=== PATIENT | female | born 1985 | race Caucasian/White ===

== ENCOUNTER 2024-04-13 19:37 | Inpatient (IN) | payer BC ==
[2024-04-13] MEDS: SODIUM CHLORIDE 0.9% 1,000 ML IV STA (20:36)
--- NOTE | 2024-04-13 20:36 | ED ---
General Adult HPI - General Chief complaint: Nausea/Vomiting/Diarrhea Stated complaint: NVD Time Seen by Provider: 04/13/24 19:48 Source: patient, EMS Mode of arrival: EMS - History of Present Illness Initial comments: Dictation was produced using [employer] dictation software. please excuse any grammatical, word or spelling errors. Chief Complaint: 38-year-old female with multiple complaints History of Present Illness: Patient 38-year-old female states that she ran out of her medications recently. She has history of hypertension and anxiety. She ran out of her Xanax prescription states that she has also been drinking. States she has had poor appetite, nausea vomiting. Emesis nonbilious nonbloody. She states she is also anxious and has lost 20 pounds unintentionally The ROS documented in this emergency department record has been reviewed and confirmed by me. Those systems with pertinent positive or negative responses have been documented in the HPI. All other systems are other negative and/or noncontributory. - Related Data Allergies Allergy/AdvReac Type Severity Reaction Status Date / Time No Known Allergies Allergy Verified 04/13/24 19:51 Review of Systems ROS Statement: Those systems with pertinent positive or pertinent negative responses have been documented in the HPI. ROS Other: All systems not noted in ROS Statement are negative. Past Medical History Past Medical History: Cancer, Hypertension Additional Past Medical History / Comment(s): Cervical cancer 2009 Past Surgical History: Adenoidectomy, Tonsillectomy Past Psychological History: Anxiety Past Alcohol Use History: Daily Past Drug Use History: None Reported General Exam - General Exam Comments Initial Comments: PHYSICAL EXAM: General Impression: Alert and oriented x3, not in acute distress HEENT: Normocephalic atraumatic, extra-ocular movements intact, pupils equal and reactive to light bilaterally, mucous membranes moist. Cardiovascular: Heart regular rate and rhythm Chest: Able to complete full sentences, no retractions, no tachypnea Abdomen: abdomen soft, non-tender, non-distended, no organomegaly Musculoskeletal: Pulses present and equal in all extremities, no peripheral edema Motor: no focal deficits noted Neurological: CN II-XII grossly intact, no focal motor or sensory deficits noted Skin: Intact with no visualized rashes Psych: Normal affect and mood Course Vital Signs 04/13/24 04/13/24 19:40 21:13 Temperature 98.3 F 98.4 F Pulse Rate 110 H 100 Respiratory 16 18 Rate Blood Pressure 140/90 139/89 O2 Sat by Pulse 97 99 Oximetry Medical Decision Making - Medical Decision Making Was pt. sent in by a medical professional or institution (, [facility], [employer]OO[employer] PROMENADE TILE SETTER, urgent care, hospital, or [place] [facility]...) When possible be specific @ -No Did you speak to anyone other than the patient for history (EMS, parent, family, police, friend...)? What history was obtained from this source @ -No Did you review nursing and triage notes (agree or disagree)? Why? @ -I reviewed and agree with nursing and triage notes Were old charts reviewed (outside hosp., previous admission, EMS record, old EKG, old radiological studies, urgent care reports/EKG's, [place] [facility] records)? Report findings @ -No old charts were reviewed Differential Diagnosis (chest pain, altered mental status, abdominal pain women, abdominal pain men, vaginal bleeding, musculoskeletal, weakness, fever, dyspnea, syncope, headache, dizziness, GI bleed, back pain, seizure, CVA, palpatations, mental health)? @ -Differential Weakness: Hypoglycemia, shock, sepsis, hyponatremia, anemia, infection, FL, ETOH, adverse medicine reaction, overdose, stroke, this is not meant to be an all-inclusive list. EKG interpreted by me (3pts min.). @ -See above X-rays interpreted by me (1pt min.). @ -None done CT interpreted by me (1pt min.). @ -None done U/S interpreted by me (1pt. min.). @ -None done What testing was considered but not performed or refused? (CT, X-rays, U/S, labs)? Why? @ -None What meds were considered but not given or refused? Why? @ -None Was smoking cessation discussed for >3mins.? @ -No Were there social determinants of health that impacted care today? How? (Homelessness, low income, unemployed, alcoholism, drug addiction, transportation, low edu. Level, literacy, decrease access to med. care, long term, rehab)? @ -No Was there de-escalation of care discussed even if they declined (Discuss DNR or withdrawal of care, Hospice)? DNR status @ -No What co-morbidities impacted this encounter? (DM, HTN, Smoking, COPD, CAD, Cancer, CVA, ARF, Chemo, Hep., AIDS, mental health diagnosis, sleep apnea, morbid obesity)? @ -None Was patient admitted / discharged? Hospital course, mention meds given and route, prescriptions, significant lab abnormalities, going to OR and other pertinent info. @ -38-year-old female presents to the emergency department for multiple complaints. Vital signs upon arrival are within acceptable limits. Physical examination is benign. Patient well-appearing. Laboratory evaluation obtained. Showing significant electrolyte derangement with potassium 3.0 and magnesium 1.1. Patient will be admitted for electrolyte derangement Did you discuss the management of the patient with other professionals (professionals i.e. , PA, ROO[employer] PROMENADE TILE SETTER, lab, RT, psych nurse, social services specialist, bungy jump master, teacher, reserve officer, piano case and bench assembler)? Give summary @ -Case discussed with hospitalist for admission Was critical care preformed (if so, how long)? @ -No Undiagnosed new problem with uncertain prognosis? @ -No Drug Therapy requiring intensive monitoring for toxicity (Heparin, Nitro, Insulin, Cardizem)? @ -No Were any procedures done? @ -No Diagnosis/symptom? Acute, or Chronic, or Acute on Chronic? Uncomplicated (without systemic symptoms) or Complicated (systemic symptoms)? @ -Electrolyte derangement Side effects of treatment? @ -No Exacerbation, Progression, or Severe Exacerbation? @ -No Poses a threat to life or bodily function? How? (Chest pain, USA, FL, pneumonia, PE, COPD, DKA, ARF, appy, cholecystitis, CVA, Diverticulitis, Homicidal, Suicidal, threat to staff... and all critical care pts) @ -yes - Lab Data Result diagrams: 04/13/24 20:41 04/13/24 20:41 Lab Results 04/13/24 04/13/24 04/13/24 Range/Units 20:41 20:41 20:47 WBC 6.1 (3.8-10.6) k/uL RBC 3.57 L (3.80-5.40) m/uL Hgb 12.6 (11.4-16.0) gm/dL Hct 37.5 (34.0-46.0) % MCV 105.3 H (80.0-100.0) fL MCH 35.3 H (25.0-35.0) pg MCHC 33.6 (31.0-37.0) g/dL RDW 16.1 H (11.5-15.5) % Plt Count 164 (150-450) k/uL MPV 7.9 Neutrophils % 70 % Lymphocytes % 23 % Monocytes % 5 % Eosinophils % 0 % Basophils % 0 % Neutrophils # 4.3 (1.3-7.7) k/uL Lymphocytes # 1.4 (1.0-4.8) k/uL Monocytes # 0.3 (0-1.0) k/uL Eosinophils # 0.0 (0-0.7) k/uL Basophils # 0.0 (0-0.2) k/uL Anisocytosis Slight Macrocytosis Moderate Sodium 136 L (137-145) mmol/L Potassium 3.0 L (3.5-5.1) mmol/L Chloride 103 (98-107) mmol/L Carbon Dioxide 27 (22-30) mmol/L Anion Gap 6 mmol/L BUN 9 (7-17) mg/dL Creatinine 0.65 (0.52-1.04) mg/dL Est GFR (CKD-EPI)AfAm >90 (>60 ml/min/1.73 sqM) Est GFR (CKD-EPI)NonAf >90 (>60 ml/min/1.73 sqM) Glucose 119 H (74-99) mg/dL Calcium 9.3 (8.4-10.2) mg/dL Magnesium 1.1 L (1.6-2.3) mg/dL Total Bilirubin 3.1 H (0.2-1.3) mg/dL Conjugated Bilirubin 0.0 (0.0-0.3) mg/dL Unconjugated Bilirubin 2.3 H (0.0-1.1) mg/dL Delta Bilirubin 0.8 H (0.0-0.2) mg/dL TSH 3.420 (0.465-4.680) mIU/L Serum Alcohol <10 mg/dL Disposition Clinical Impression: Electrolyte abnormality Disposition: ADMITTED IP TO THIS [facility] Condition: Fair Referrals: None,Stated [REFERRING] - 1-2 days Decision Time: 21:54
[2024-04-13] MEDS: LORazepam 2 MG/ML INJ IV STA (20:37)
[2024-04-13 21:15] LABS: African American GFR (CKD) >90 (>60 ml/min/1.73 sqM); Anion Gap 6 mmol/L; Blood Urea Nitrogen 9 mg/dL (7-17); Calcium 9.3 mg/dL (8.4-10.2); Carbon Dioxide 27 mmol/L (22-30); Chloride 103 mmol/L (98-107); Glucose 119 mg/dL (74-99); Magnesium 1.1 mg/dL (1.6-2.3); Non-African American GFR(CKD) >90 (>60 ml/min/1.73 sqM); Sodium 136 mmol/L (137-145)
[2024-04-13 21:16] LABS: Alcohol <10 mg/dL; Bilirubin, Delta 0.8 mg/dL (0.0-0.2); Bilirubin,Unconjugated 2.3 mg/dL (0.0-1.1); Total Bilirubin 3.1 mg/dL (0.2-1.3)
[2024-04-13 21:27] LABS: Anisocytosis Slight; Basophils % (A) 0 %; Eosinophils % (A) 0 %; HCT 37.5 % (34.0-46.0); HGB 12.6 gm/dL (11.4-16.0); Lymphocytes # (A) 1.4 k/uL (1.0-4.8); Lymphocytes % (A) 23 %; MCH 35.3 pg (25.0-35.0); MCHC 33.6 g/dL (31.0-37.0); MCV 105.3 fL (80.0-100.0); Macrocytosis Moderate; Mean Platelet Volume 7.9; Monocytes # (A) 0.3 k/uL (0-1.0); Monocytes % (A) 5 %; Neutrophils # (A) 4.3 k/uL (1.3-7.7); Neutrophils % (A) 70 %; Platelet Count 164 k/uL (150-450); RBC 3.57 m/uL (3.80-5.40); RDW 16.1 % (11.5-15.5); WBC 6.1 k/uL (3.8-10.6)
[2024-04-13] MEDS ORDERED: NALOXONE 0.4 MG/ML 1 ML VIAL IV PRN (21:50)
[2024-04-13] MEDS: SODIUM CHLORIDE 0.9% 1,000 ML IV SCH (22:14)
[2024-04-13] MEDS: MAGNESIUM SULFATE-D5W PMX 1 GM in DEXTROSE/WATER 1 100ML.BAG IVPB SCH ×2 (22:15→23:50)
[2024-04-13] MEDS ORDERED: Magnesium Replacement Protocol 1 EACH MISC MISCELLANE PRN (22:34)
[2024-04-13] MEDS ORDERED: Potassium Replacement Protocol 1 EACH MISC MISCELLANE PRN (22:35)
[2024-04-13] MEDS: POTASSIUM CHLORIDE 20 MEQ in WATER FOR INJECTION 1 100ML.BAG IVPB STA (23:18)
[2024-04-13] MEDS: POTASSIUM CHLORIDE ER 20 MEQ TAB.ER PO STA (23:21)
[2024-04-14] MEDS: ALPRAZolam 1 MG TAB PO PRN (00:32)
[2024-04-14] MEDS: traMADol 50 MG TAB PO PRN (00:32)
[2024-04-14 09:08] LABS: BUN/Creat Ratio 9.86 Ratio (12.00-20.00); Blood Urea Nitrogen 6.9 mg/dL (9.0-27.0); Calcium 7.9 mg/dL (8.7-10.3); Chloride 102 mmol/L (96-109); Glucose 95 mg/dL (70-110); Magnesium 1.9 mg/dL (1.5-2.4); Potassium 3.1 mmol/L (3.5-5.5); Sodium 137 mmol/L (135-145)
[2024-04-14] MEDS ORDERED: Potassium Replacement Protocol 1 EACH MISC MISCELLANE PRN (09:52)
[2024-04-14 11:14] LABS: ALT 78 U/L (8-44); AST 217 U/L (13-35)
--- NOTE | 2024-04-14 13:53 | P.CN ---
Psychiatric Consult - . Consult date: 04/14/24 Consult:: 04/14/24 13:39 IDENTIFYING DATA: This patient is a REASON FOR REFERRAL: Psychiatry was consulted for anxiety HISTORY OF PRESENT ILLNESS: The patient presented to the hospital due to having blood in her mucus. The patient notes that she has a history of anxiety and panic attacks. She notes that this started around at the age of 20 when her parents were getting . He notes that she was placed on Xanax back then and has been on it ever since. He has been on a dose as high as 5 mg in the past. She notes that she takes Xanax 1 mg twice daily as needed and generally takes it every day. She notes that she has been out of Xanax for the past 2 weeks but denies any physical withdrawal symptoms. He notes when she has panic attacks she gets numbness, hyperventilates and has a tight chest. These panic attacks can last anywhere between a couple of minutes to an hour. She also notes history of being a worrywart worries roughly 100% of the day and has muscle tension. Patient denies any ongoing depression but notes that her anxiety currently is waxing and waning. She notes that she is getting 8 hours of sleep at night. Notes that her energy is good. She notes recently due to coughing up the blood clot and other things going on she has lost 15 pounds. She notes that her concentration is moderate. Denies any feelings of helplessness, hopelessness or worthlessness. She denies any crying. She denies any guilt or shame.. At this time patient denies any suicidal or homical ideations, intent or plan. Patient denies any access to guns. Patient denies any auditory, visual hallucinations and denies any paranoia or delusions. You have psychiatric systems was negative for bipolar disorder, OCD, PTSD and psychosis. PAST PSYCHIATRIC HISTORY: Patient has a a history of panic attacks. Patient has only been on Xanax in the past. Denies any prior hospitalization or follow-up with outpatient mental health. She denies any history of suicide attempts. She denies any history of abuse physical, verbal, or sexual. She denies any history of self mutilating behavior. She denies any history of legal problems or violence. PAST MEDICAL HISTORY: Cervical cancer, hypertension, tonsillectomy, adenoids removed. ALLERGIES: as per EMR. CHEMICAL DEPENDENCY HISTORY: as per HPI. Caffeine-positive Tobacco-patient vapes and used to smoke Alcohol-socially FAMILY PSYCHIATRIC/SUBSTANCE USE HISTORY: Patient notes that most of her family suffers from anxiety SOCIAL HISTORY: Patient was born and raised in [place] and completed high school with good grades. She describes her childhood as "happy". The patient notes that she has been in relationship with her for 8 years and for 2. She is currently getting . She denies any children. 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 She notes that she is spiritual. She denies any previous experience.. MENTAL STATUS EXAM: General Appearance: Patient appears to be stated age is alert, pleasant, and cooperative. Patient appears to have fair hygiene and grooming wearing hospital gown with fair eye contact. Behavior: Patient is calmly lying in bed without any agitated behavior. Speech: Patient's speech is fluent and nonpressured. Mood/Affect: Patient reports their mood is "anxious", affect is congruent Suicidality/Homicidality: Patient denies having any suicidal or homicidal ideation intent or plan. Perceptions: Patient denies any visual hallucinations and denies any auditory hallucinations Though content/process: There is no evidence of any delusional thought content and thought process is linear and goal-directed. Memory and concentration: AOX3, grossly intact for the purposes of this session. Judgment and insight: Fair IMPRESSIONS: Panic disorder Anxiety disorder NOS Assessment: 38-year-old female presenting to the hospital due to concerns over her current health condition. Patient has been coughing up blood clots. Per patient's history she has a long history of anxiety problems specifically around panic attacks and has been treated since the age of 20 with Xanax. He has been on higher doses but was reduced in the past down to 1 mg twice daily. 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 Patient is currently not suicidal or danger to others. PLAN: -At this time patient DOES NOT meet criteria for inpatient psychiatric admission. -Would recommend the following medication changes/additions: Recommendations are at this point to continue the patient's Xanax 1 mg twice daily as needed for panic attacks. The patient has been provided with information to eventually get off her Xanax and will give it to her primary care doctor this includes decreasing the Xanax by 0.25 mg every 2 weeks and starting Lexapro 10 mg. Additionally it was suggested that she start therapy in order to learn coping techniques. -dry mill worker to provide patient with outpatient mental health/psychiatry resources for appropriate follow up upon discharge -Psychiatry will sign off at this time -Please contact with any questions.
--- NOTE | 2024-04-14 14:23 | P.HPIM ---
History of Present Illness H&P Date: 04/14/24 History of present illness; patient 38-year-old lady with past medical history significant for anxiety, hypertension brought in the ER because of nausea and vomiting. Patient stated that she was all right a few days back when she ran out of her Xanax prescription, patient was coping being out of the next by drinking heavily. Patient is complaining of poor appetite. Patient has nausea and vomiting. Denies abdominal pain. Patient is complaining of weight loss. Denies any altered bowel movements. There is no complaint of orthopnea or PND. Denied any chest pain. Because of the symptoms, patient came to the ER Initial lab work done in the ER showed CBC 6.1, hemoglobin 0.6, platelet count 164, sodium 136, potassium 3, BUN 9, creatinine 0.65, glucose 119, magnesium 1.1, bilirubin 3.1 Patient admitted to internal medicine service REVIEW OF SYSTEMS: CONSTITUTIONAL: No fever, no malaise, no fatigue. HEENT: No recent visual problems or hearing problems. Denied any sore throat. CARDIOVASCULAR: No chest pain, orthopnea, PND, no palpitations, no syncope. PULMONARY: No shortness of breath, no cough, no hemoptysis. GASTROINTESTINAL: As mentioned above NEUROLOGICAL: No headaches, no weakness, no numbness. HEMATOLOGICAL: Denies any bleeding or petechiae. GENITOURINARY: Denies any burning micturition, frequency, or urgency. MUSCULOSKELETAL/RHEUMATOLOGICAL: Denies any joint pain, swelling, or any muscle pain. ENDOCRINE: Denies any polyuria or polydipsia. The rest of the 14-point review of systems is negative. PHYSICAL EXAMINATION: GENERAL: The patient is alert and oriented x3, not in any acute distress. Well developed, well nourished. HEENT: Pupils are round and equally reacting to light. EOMI. No scleral icterus. No conjunctival pallor. Normocephalic, atraumatic. No pharyngeal erythema. No thyromegaly. CARDIOVASCULAR: S1 and S2 present. No murmurs, rubs, or gallops. PULMONARY: Chest is clear to auscultation, no wheezing or crackles. ABDOMEN: Soft, nontender, nondistended, normoactive bowel sounds. No palpable organomegaly. MUSCULOSKELETAL: No joint swelling or deformity. EXTREMITIES: No cyanosis, clubbing, or pedal edema. NEUROLOGICAL: Gross neurological examination did not reveal any focal deficits. SKIN: No rashes. Assessment and plan Nausea and vomiting Hyponatremia Hypokalemia Hypomagnesemia Hyper bilirubinemia Anxiety Hypertension Monitor vital signs Monitor CBC Monitor CMP Avoid hepatotoxic agents Ordered repeat LFTs Ordered ultrasound abdomen Ordered antiemetics Replace potassium Resume home med Consult psychiatry for anxiety Labs and medication were reviewed.. Continue same treatment. Continue with symptomatic treatment. Resume home medication. Monitor labs and vitals. DVT and GI prophylaxis. Further recommendations as per clinical course of the patient Dictation was produced using [employer] dictation software. please excuse any grammatical, word or spelling errors. Past Medical History Past Medical History: Cancer, Hypertension Additional Past Medical History / Comment(s): Cervical cancer 2008 History of Any Multi-Drug Resistant Organisms: None Reported Past Surgical History: Adenoidectomy, Tonsillectomy Past Psychological History: Anxiety Smoking Status: Never smoker Past Alcohol Use History: Daily Past Drug Use History: None Reported Medications and Allergies Home Medications Medication Instructions Recorded Confirmed Type ALPRAZolam [Xanax] 1 mg PO BID PRN 04/13/24 04/14/24 History traMADol HCl [Ultram] 50 mg PO TID PRN 04/13/24 04/14/24 History Allergies Allergy/AdvReac Type Severity Reaction Status Date / Time No Known Allergies Allergy Verified 04/14/24 13:50 Physical Exam Vitals: Vital Signs Temp Pulse Pulse Resp BP BP Pulse Ox 04/14/24 08:00 74 17 04/14/24 07:00 97.4 F L 74 17 142/86 97 04/14/24 01:47 98.3 F 94 18 117/82 98 04/13/24 23:05 98.6 F 110 H 20 128/87 97 04/13/24 22:51 98 18 136/84 98 04/13/24 21:13 98.4 F 100 18 139/89 99 04/13/24 19:40 98.3 F 110 H 16 140/90 97 Intake and Output 04/13/24 04/14/24 04/14/24 22:59 06:59 14:59 Intake Total 100 Balance 100 Intake: Oral 100 Other: # Voids 1 Weight 74.843 kg Results CBC & Chem 7: 04/13/24 20:41 04/14/24 04:51 Labs: Abnormal Lab Results - Last 24 Hours (Table) 04/13/24 04/13/24 04/13/24 Range/Units 20:41 20:41 20:47 RBC 3.57 L (3.80-5.40) m/uL MCV 105.3 H (80.0-100.0) fL MCH 35.3 H (25.0-35.0) pg RDW 16.1 H (11.5-15.5) % Sodium 136 L (137-145) mmol/L Potassium 3.0 L (3.5-5.1) mmol/L BUN (9.0-27.0) mg/dL BUN/Creatinine Ratio (12.00-20.00) Ratio Glucose 119 H (74-99) mg/dL Calcium (8.7-10.3) mg/dL Magnesium 1.1 L (1.6-2.3) mg/dL Total Bilirubin 3.1 H (0.2-1.3) mg/dL Unconjugated Bilirubin 2.3 H (0.0-1.1) mg/dL Delta Bilirubin 0.8 H (0.0-0.2) mg/dL 04/14/24 Range/Units 04:51 RBC (3.80-5.40) m/uL MCV (80.0-100.0) fL MCH (25.0-35.0) pg RDW (11.5-15.5) % Sodium (137-145) mmol/L Potassium 3.1 L (3.5-5.1) mmol/L BUN 6.9 L (9.0-27.0) mg/dL BUN/Creatinine Ratio 9.86 L (12.00-20.00) Ratio Glucose (74-99) mg/dL Calcium 7.9 L (8.7-10.3) mg/dL Magnesium (1.6-2.3) mg/dL Total Bilirubin (0.2-1.3) mg/dL Unconjugated Bilirubin (0.0-1.1) mg/dL Delta Bilirubin (0.0-0.2) mg/dL
--- NOTE | 2024-04-14 15:17 | US ---
EXAMINATION TYPE: US abdomen limited DATE OF EXAM: 04/14/2024 COMPARISON: NONE CLINICAL INDICATION: Female, 38 years old with history of Abdominal pain; abd pain for 2 weeks, could not eat without throwing up, anxiety, h/o fatty liver TECHNIQUE: Grayscale and color Doppler imaging of the right upper quadrant was performed. FINDINGS: EXAM MEASUREMENTS: Liver Length: 21.2 cm Gallbladder Wall: 0.2 cm CBD: 0.4 cm Right Kidney: 10.3 x 3.7 x 4.3 cm Pancreas: portions seen appear wnl Liver: enlarged and very difficult to penetrate , and no obvious masses. No dilated ducts. Gallbladder: multiple stones seen, largest = 1.6cm Evidence for sonographic Smith's sign: yes CBD: wnl Right Kidney: wnl IMPRESSION: 1. Hepatic steatosis. 2. Cholelithiasis. [facility] [place], , 04/14/2024 3:15 PM
[2024-04-14] MEDS: POTASSIUM CHLORIDE ER 20 MEQ TAB.ER PO SCH (16:08)
[2024-04-14] MEDS: ONDANSETRON 4 MG TAB PO PRN (17:32)
[2024-04-15 13:11] LABS: ALT 125 U/L (4-34); AST 303 U/L (14-36); African American GFR (CKD) >90 (>60 ml/min/1.73 sqM); Albumin 4.5 g/dL (3.5-5.0); Albumin/Globulin Ratio 1.5; Alkaline Phosphatase 57 U/L (38-126); Anion Gap 3 mmol/L; Blood Urea Nitrogen 5 mg/dL (7-17); Calcium 8.6 mg/dL (8.4-10.2); Carbon Dioxide 31 mmol/L (22-30); Chloride 103 mmol/L (98-107); Globulin 3.1 g/dL; Glucose 101 mg/dL (74-99); Non-African American GFR(CKD) >90 (>60 ml/min/1.73 sqM); Potassium 3.8 mmol/L (3.5-5.1); Sodium 137 mmol/L (137-145); Total Protein 7.6 g/dL (6.3-8.2)
--- NOTE | 2024-04-15 15:01 | P.PN ---
Subjective Progress Note Date: 04/15/24 patient 38-year-old lady with past medical history significant for anxiety, hypertension brought in the ER because of nausea and vomiting. Patient stated that she was all right a few days back when she ran out of her Xanax prescription, patient was coping being out of the next by drinking heavily. Patient is complaining of poor appetite. Patient has nausea and vomiting. Denies abdominal pain. Patient is complaining of weight loss. Denies any altered bowel movements. There is no complaint of orthopnea or PND. Denied any chest pain. Because of the symptoms, patient came to the ER Initial lab work done in the ER showed CBC 6.1, hemoglobin 0.6, platelet count 164, sodium 136, potassium 3, BUN 9, creatinine 0.65, glucose 119, magnesium 1.1, bilirubin 3.1 Patient admitted to internal medicine service 04/15. Patient seen and examined. Abdominal pain has improved. Tolerating diet. No nausea or vomiting. REVIEW OF SYSTEMS: CONSTITUTIONAL: No fever, no malaise,. CARDIOVASCULAR: No chest pain, no palpitations, no syncope. PULMONARY: No shortness of breath, no cough, GASTROINTESTINAL: No diarrhea, no nausea, no vomiting, no abdominal pain. NEUROLOGICAL: No headaches, no weakness, PHYSICAL EXAMINATION: GENERAL: The patient is alert and oriented x3, not in any acute distress. Well developed, well nourished. HEENT: Pupils are round and equally reacting to light. EOMI. No scleral icterus. No conjunctival pallor. Normocephalic, atraumatic. No pharyngeal erythema. No thyromegaly. CARDIOVASCULAR: S1 and S2 present. No murmurs, rubs, or gallops. PULMONARY: Chest is clear to auscultation, no wheezing or crackles. ABDOMEN: Soft, nontender, nondistended, normoactive bowel sounds. No palpable organomegaly. MUSCULOSKELETAL: No joint swelling or deformity. EXTREMITIES: No cyanosis, clubbing, or pedal edema. NEUROLOGICAL: Gross neurological examination did not reveal any focal deficits. SKIN: No rashes. Assessment and plan Nausea and vomiting Hyponatremia Hypokalemia Hypomagnesemia Hyper bilirubinemia Acute transaminitis Anxiety Hypertension Monitor vital signs Monitor CBC Monitor CMP Avoid hepatotoxic agents Trend LFTs ultrasound abdomen showed cholelithiasis Ordered MRCP Consult surgery for abdominal ultrasound findings Labs and medication were reviewed.. Continue same treatment. Continue with symptomatic treatment. Resume home medication. Monitor labs and vitals. DVT and GI prophylaxis. Further recommendations as per clinical course of the patie nt Dictation was produced using [employer] dictation software. please excuse any grammatical, word or spelling errors. Objective - Vital Signs Vital signs: Vital Signs Temp 98.4 F 04/15/24 13:18 Pulse 99 04/15/24 13:18 Resp 17 04/15/24 13:18 BP 124/86 04/15/24 13:18 Pulse Ox 100 04/15/24 13:18 FiO2 Intake & Output 04/14/24 04/15/24 04/15/24 18:59 06:59 18:59 Intake Total 758 118 Balance 758 118 Intake: Oral 758 118 Other: # Voids 3 1 3 - Labs CBC & Chem 7: 04/13/24 20:41 04/15/24 12:32 Labs: Abnormal Lab Results - Last 24 Hours (Table) 04/15/24 Range/Units 12:32 Carbon Dioxide 31 H (22-30) mmol/L BUN 5 L (7-17) mg/dL Glucose 101 H (74-99) mg/dL Total Bilirubin 3.0 H (0.2-1.3) mg/dL AST 303 H (14-36) U/L ALT 125 H (4-34) U/L
--- NOTE | 2024-04-15 15:16 | P.GSCN ---
History of Present Illness Consult date: 04/15/24 History of present illness: CHIEF COMPLAINT: Nausea and vomiting HISTORY OF PRESENT ILLNESS: This is a 38-year-old female who presented to the hospital with complaints of nausea and vomiting with decreased appetite over the last 2 weeks. She also reports right sided back pain. She denies any abdominal pain. Patient reports also a 20 pound weight loss over the last 2 weeks. But has had poor appetite with the nausea and vomiting. Patient also reports alcohol use. She reports that she has been drinking more than usual. Her abdominal ultrasound has report gallstones and hepatic steatosis. Her total bilirubin was elevated at 3.1 and elevated LFTs. Patient does report her LFTs have been elevated on past blood work and she has been told she has had a fatty liver before. Patient tolerated regular diet last night and this morning. Surgical surgery was consulted in regards to elevated total bilirubin and gallstones. PAST MEDICAL HISTORY: See list. PAST SURGICAL HISTORY: See list. MEDICATIONS: See list. ALLERGIES: See list. SOCIAL HISTORY: No illicit drug use. REVIEW OF SYSTEMS: CONSTITUTIONAL: Denies fever or chills. HEENT: Denies blurred vision, vision changes, or eye pain. Denies hemoptysis ENDOCRINE: Denies heat or cold intolerance. CARDIOVASCULAR: Denies chest pain or pressure. RESPIRATORY: No shortness of breath. GASTROINTESTINAL: Denies abdominal pain. Denies nausea or vomiting. NEURO: Denies history of seizures. PSYCH: No depression or suicidal ideation HEMATOLOGIC: Denies bleeding disorders. LYMPHATIC: The patient denies any lumps and bumps around the neck. GENITOURINARY: Denies any blood in urine or increased urinary frequency. MUSCULOSKELETAL: Denies myalgias. Denies joint swelling. Denies decreased range of motion beyond patients baseline. SKIN: Denies pruitis. Denies rash. PHYSICAL EXAM: VITAL SIGNS: Reviewed GENERAL: Well-developed in no acute distress. HEENT: Scleral icterus present. Extraocular movements grossly intact. Moist buccal mucosa. Head is atraumatic, normocephalic. Hears conversational speech. No nasal drainage. NECK: Supple without lymphadenopathy. CHEST: Non-labored respirations and equal bilateral excursions. CARDIOVASCULAR: Palpable 2+ radial pulses. ABDOMEN: Soft. Nondistended. Nontender BACK: Right side of back nontender with palpation MUSCULOSKELETAL: No clubbing or cyanosis. NEUROLOGIC: No focal or lateralizing signs. Cranial nerves II through XII grossly intact. PSYCH: Appropriate affect. Alert and oriented to person, place and time. SKIN: Well perfused. Good skin turgor. LABORATORY DATA: WBC 6.1 Hgb 12.6 platelets 164 Sodium 137 potassium 3.8 creatinine 0.56 Total bilirubin 3.1-3 AST 2 17-3 03 ALT 78-1 25 Serum alcohol level less than 10 IMAGING: Abdominal ultrasound reports hepatic steatosis and cholelithiasis. positive Smith sign ASSESSMENT: 1. Cholelithiasis with elevated total bilirubin and LFTs. Need to rule out CBD stone 2. Hepatic steatosis 3. Alcohol use 4. Anxiety PLAN: -MRCP ordered to rule out CBD stone -Repeat LFTs and total bilirubin in a.m. -Recommend low fat diet Physician [employer] Person note has been reviewed by physician. Signing provider agrees with the documented findings, assessment, and plan of care. Please see additional documentation CHIEF COMPLAINT: Symptomatic gallstones HISTORY OF PRESENT ILLNESS: The patient is a 38 year old female admitted with hypertensive crisis including nausea vomiting and panic disorder. Patient had abnormal LFTs with findings suggestive gallstone since general surgery consultation. Patient did have binge drinking to address panic disorder. Patient does admit to right-sided abdominal pain as her episode and symptoms ongoing for more than 5 days. Only, patient has recent weight loss. PAST MEDICAL HISTORY: See list and reviewed PAST SURGICAL HISTORY: See list and reviewed MEDICATIONS: See list and reviewed ALLERGIES: See list and reviewed SOCIAL HISTORY: See list and reviewed FAMILY HISTORY: See list and reviewed REVIEW OF ORGAN SYSTEMS: CONSTITUTIONAL: No fevers or chills. Has recent weight loss. EYES: Denies any trouble with vision. No glasses. HEENT: No difficulties with hearing. No nosebleeds. No difficulty swallowing. RESPIRATORY: Denies pneumonia. Denies any troubles with breathing or dyspnea on exertion. CARDIOVASCULAR: Denies any chest pain, palpitations, or recent heart attacks. GASTROINTESTINAL: Has nausea and vomiting. GENITOURINARY: Denies any blood in urine or increased urinary frequency. NEUROLOGICAL: Denies any numbness or tingling along the distal extremities. No seizure disorders or headaches. MUSCULOSKELETAL: Denies any back pain, stiffness or joint arthritis. SKIN: No current skin cancer. No rash. PSYCHIATRIC: Has anxiety disorder. ENDOCRINE: Denies current thyroid disorders. Denies any blood sugar glucose intolerance. HEME/LYMPHATIC: Denies any lumps and bumps around the neck. No recent deep venous thrombosis. ALLERGY/IMMUNOLOGY: No immunoglobulin therapy. No immune deficiencies. BREAST: Denies current breast lumps, pain or nipple discharge. PHYSICAL EXAM: VITALS: Reviewed CONSTITUTIONAL: Well developed and in no acute distress. EYES: Conjuctivae with sclera icterus. Extraocular movements grossly intact. HEAD, EARS, NOSE, THROAT: Moist buccal mucosa. Head is atraumatic, normocephalic. Hears conversational speech. No nasal drainage. NECK: Supple. No JV distention. No thyroidomegaly. RESPIRATORY: Non-labored respirations and equal bilateral excursions. No gross wheezes. CARDIOVASCULAR: Palpable 2+ radial pulses. ABDOMEN: No peritonitis. LYMPH: No neck lymphadenopathy. MUSCULOSKELETAL: No clubbing cyanosis or edema SKIN: Warm and well perfused with good skin turgor. NEUROLOGIC: Cranial nerves II through XII grossly intact. No focal or lateralizing signs. PSYCH: Appropriate affect. Alert and oriented to person, place and time. D isplays appropriate insight. CLINCAL LABS: Reviewed. LFTs elevated including total bilirubin over 3.1. Alcohol screen negative. IMAGING: Independently reviewed. Ultrasound of the gallbladder independently reviewed demonstrates large gallstones. Poor penetration of the liver consistent with fatty liver disease. This is my independent interpretation with common Bile duct less than 1 cm. REPORT: Ultrasound report demonstrates hepatic steatosis including gallstones. ASSESSMENT: 1. Symptomatic gallstones with elevated LFTs 2. Acute psychotic episode with acute panic disorder 3. Hyperbilirubinemia with jaundice 4. Recent binge alcohol use PLAN: 1. IV fluid hydration. 2. Recommend MRCP due to gallstones and risk of choledocholithiasis which cannot be excluded 3. May have low-fat diet in the interim. ADVANCE DIRECTIVE: CODE STATUS in chart. Thank you for this kind consultation. Past Medical History Past Medical History: Cancer, Hypertension Additional Past Medical History / Comment(s): Cervical cancer 2009 History of Any Multi-Drug Resistant Organisms: None Reported Past Surgical History: Adenoidectomy, Tonsillectomy Past Psychological History: Anxiety Smoking Status: Never smoker Past Alcohol Use History: Daily Past Drug Use History: None Reported Medications and Allergies Home Medications Medication Instructions Recorded Confirmed Type ALPRAZolam [Xanax] 1 mg PO BID PRN 04/13/24 04/14/24 History traMADol HCl [Ultram] 50 mg PO TID PRN 04/13/24 04/14/24 History Allergies Allergy/AdvReac Type Severity Reaction Status Date / Time No Known Allergies Allergy Verified 04/14/24 13:50 Surgical - Exam Vital Signs Temp Pulse Resp BP Pulse Ox 98.3 F 110 H 16 140/90 97 04/13/24 19:40 04/13/24 19:40 04/13/24 19:40 04/13/24 19:40 04/13/24 19:40 Results - Labs 04/16/24 02:46 04/16/24 02:46
[2024-04-16] MEDS: HYDROcodone/APAP 5-325MG 1 EACH TAB PO STA (00:30)
[2024-04-16 09:05] LABS: HCT 36.7 % (37.2-46.3); MCH 36.1 pg (27.0-32.0); MCHC 32.7 g/dL (32.0-37.0); MCV 110.5 FL (80.0-97.0); Mean Platelet Volume 11.4 FL (9.5-12.2); NRBC Per 100 WBC 0.02 X 10*3/uL (0.00-0.01); Platelet Count 145 X 10*3/uL (140-440); RBC 3.32 X 10*6/uL (4.10-5.20); RDW 17.1 % (11.5-14.5); WBC 5.74 X 10*3/uL (4.50-10.00)
[2024-04-16 09:59] LABS: ALT 104 U/L (8-44); AST 211 U/L (13-35); Albumin/Globulin Ratio 1.74 Ratio (1.60-3.17); Alkaline Phosphatase 57 U/L (41-126); BUN/Creat Ratio 8.71 Ratio (12.00-20.00); Blood Urea Nitrogen 6.1 mg/dL (9.0-27.0); Calcium 8.8 mg/dL (8.7-10.3); Carbon Dioxide 28.9 mmol/L (21.6-31.8); Chloride 102 mmol/L (96-109); Globulin 2.3 g/dL (1.6-3.3); Glucose 95 mg/dL (70-110); Potassium 4.2 mmol/L (3.5-5.5); Sodium 139 mmol/L (135-145); Total Bilirubin 1.5 mg/dL (0.3-1.2); Total Protein 6.3 g/dL (6.2-8.2)
--- NOTE | 2024-04-16 13:05 | MR ---
EXAMINATION TYPE: MR MRCP DATE OF EXAM: 04/16/2024 12:20 PM COMPARISON: Ultrasound 04/14/2024. CLINICAL INDICATION: Female, 38 years old with history of Vomiting, abdominal pain, elevated LFTs; PH H, Vomiting, abdominal pain, elevated LFTs. TECHNIQUE: Multi planar, T2-weighted imaging with and without fat saturation and chemical shift imag ing was performed of the abdomen. Then, heavily T2 weighted imaging (half-Fourier acquisition single- shot turbo spin-echo) was utilized in order to study the biliary system. Maximum intensity projectio n images were reconstructed from the original data of the biliary tree. 3D images were created on a [employer] work station. No Gadolinium given. FINDINGS: Lower Thorax: No evidence for acute process. MRCP: * The intrahepatic ducts have a normal appearance. * The extrahepatic ducts have a normal appearance. * The common hepatic duct measures 6 mm in size. * The common bile duct at the level of the pancreatic head measures 5 mm in size. * The pancreatic duct is normal. * The gallbladder demonstrates gallstones in the gallbladder lumen. Abdomen: Liver: No evidence for cirrhosis. Signal dropout on chemical shift out of phase imaging. Pancreas: No ductal dilation. No evidence for solid mass. Spleen: Normal for size. Adrenal glands: Unremarkable. Kidneys: No evidence for obstructive uropathy. No suspicious renal masses. Stomach and Bowel: No evidence for bowel wall thickening or evidence for obstruction. Retroperitoneum/Peritoneum: No evidence of pneumoperitoneum or free fluid. Vasculature: No aortic aneurysm. Musculoskeletal: The osseous structures appear intact. Lymph Nodes: No gross evidence for lymphadenopathy. Abdominal wall: Unremarkable. IMPRESSION: 1. No evidence to suggest ductal stricture, choledocholithiasis, or biliary ductal dilatation. 2. Cholelithiasis. 3. Moderate to severe Hepatic steatosis. [facility], , 04/16/2024 1:03 PM
--- NOTE | 2024-04-16 13:36 | P.PN ---
Subjective Progress Note Date: 04/16/24 patient 38-year-old lady with past medical history significant for anxiety, hypertension brought in the ER because of nausea and vomiting. Patient stated that she was all right a few days back when she ran out of her Xanax prescription, patient was coping being out of the next by drinking heavily. Patient is complaining of poor appetite. Patient has nausea and vomiting. Denies abdominal pain. Patient is complaining of weight loss. Denies any altered bowel movements. There is no complaint of orthopnea or PND. Denied any chest pain. Because of the symptoms, patient came to the ER Initial lab work done in the ER showed CBC 6.1, hemoglobin 0.6, platelet count 164, sodium 136, potassium 3, BUN 9, creatinine 0.65, glucose 119, magnesium 1.1, bilirubin 3.1 Patient admitted to internal medicine service 04/15. Patient seen and examined. Abdominal pain has improved. Tolerating diet. No nausea or vomiting. 04/16. Patient seen and examined. Labs reviewed, bilirubin and LFTs have improved. MRCP done showed no evidence of ductal stricture, cholelithiasis or biliary duct obstruction. Still complain of nausea and abdominal pain. REVIEW OF SYSTEMS: CONSTITUTIONAL: No fever, no malaise,. CARDIOVASCULAR: No chest pain, no palpitations, no syncope. PULMONARY: No shortness of breath, no cough, GASTROINTESTINAL: As mentioned above NEUROLOGICAL: No headaches, no weakness, PHYSICAL EXAMINATION: GENERAL: The patient is alert and oriented x3, not in any acute distress. Well developed, well nourished. HEENT: Pupils are round and equally reacting to light. EOMI. No scleral icterus. No conjunctival pallor. Normocephalic, atraumatic. No pharyngeal erythema. No thyromegaly. CARDIOVASCULAR: S1 and S2 present. No murmurs, rubs, or gallops. PULMONARY: Chest is clear to auscultation, no wheezing or crackles. ABDOMEN: Soft, nontender, nondistended, normoactive bowel sounds. No palpable organomegaly. MUSCULOSKELETAL: No joint swelling or deformity. EXTREMITIES: No cyanosis, clubbing, or pedal edema. NEUROLOGICAL: Gross neurological examination did not reveal any focal deficits. SKIN: No rashes. Assessment and plan Nausea and vomiting Hyponatremia Hypokalemia Hypomagnesemia Hyper bilirubinemia Acute transaminitis Anxiety Hypertension Monitor vital signs Monitor CBC Monitor CMP Avoid hepatotoxic agents Trend LFTs, bilirubin this morning is 1.5, AST is 211, ALT is 104 ultrasound abdomen showed cholelithiasis MRCP done showed no evidence of ductal stricture, cholelithiasis or biliary duct obstruction General Surgery following, planning cholecystectomy in the morning Labs and medication were reviewed.. Continue same treatment. Continue with symptomatic treatment. Resume home medication. Monitor labs and vitals. DVT and GI prophylaxis. Further recommendations as per clinical course of the patient Dictation was produced using [employer] dictation software. please excuse any grammatical, word or spelling errors. Objective - Vital Signs Vital signs: Vital Signs Temp 97.7 F 04/16/24 07:00 Pulse 81 04/16/24 07:00 Resp 16 04/16/24 07:00 BP 116/79 04/16/24 07:00 Pulse Ox 100 04/16/24 07:00 FiO2 Intake & Output 04/15/24 04/16/24 04/16/24 18:59 06:59 18:59 Intake Total 118 Balance 118 Intake: Oral 118 Other: Voiding Method Toilet # Voids 3 3 - Labs CBC & Chem 7: 04/16/24 02:46 04/16/24 02:46 Labs: Abnormal Lab Results - Last 24 Hours (Table) 04/15/24 04/16/24 04/16/24 Range/Units 12:32 02:46 02:46 RBC 3.32 L (4.10-5.20) X 10*6/uL Hct 36.7 L (37.2-46.3) % MCV 110.5 H (80.0-97.0) FL MCH 36.1 H (27.0-32.0) pg RDW 17.1 H (11.5-14.5) % NRBC/100 WBC Diff 0.02 H (0.00-0.01) X 10*3/uL Carbon Dioxide 31 H (22-30) mmol/L BUN 5 L 6.1 L (7-17) mg/dL BUN/Creatinine Ratio 8.71 L (12.00-20.00) Ratio Glucose 101 H (74-99) mg/dL Total Bilirubin 3.0 H 1.5 H (0.2-1.3) mg/dL AST 303 H 211 H (14-36) U/L ALT 125 H 104 H (4-34) U/L
--- NOTE | 2024-04-16 13:50 | P.PN ---
Subjective Progress Note Date: 04/16/24 CHIEF COMPLAINT: Abdominal pain with gallstones HISTORY OF PRESENT ILLNESS: The patient is a 38-year-old female being assessed due to elevated LFTs, alcohol abuse, abdominal pain with gallstones. She c ompleted MRCP this morning. She reports hunger. Patient is also being seen by psych. ROS: No blood in stools. No fevers or chills. No productive sputum PHYSICAL EXAM: VITAL SIGNS: Reviewed CONSTITUTIONAL: Well developed and in no acute distress. EYES: Conjuctivae without sclera icterus. Extraocular movements grossly intact. HEAD, EARS, NOSE, THROAT: Moist buccal mucosa. Head is atraumatic, normocephalic. Hears conversational speech. No nasal drainage. RESPIRATORY: Non-labored respirations and equal bilateral excursions. CARDIOVASCULAR: Palpable 2+ radial pulses. ABDOMEN: No diffuse peritonitis. Tender upper abdomen MUSCULOSKELETAL: No gross deformity of the lower extremities noted. No clubbing. No cyanosis. SKIN: Good skin turgor. Well perfused. NEUROLOGIC: Cranial nerves II through XII grossly intact. No focal or lateralizing signs. PSYCH: Hysterical affect. Alert and oriented to person, place and time. CLINICAL LABS: Reviewed. Total bilirubin down 3.1-1.5. LFTs elevated 200s. STUDIES: MRCP independent reviewed demonstrates no abnormalities within common b ile duct. Stones identified within the gallbladder. This is my independent interpretation. Radiology report not available at time of my assessment. ASSESSMENT: 1. Symptomatic gallstones with abdominal pain 2. Elevated LFTs with history of alcohol abuse disorder PLAN: 1. Recommend cholecystectomy while inpatient. 2. May have a low-fat diet in the interim Objective - Vital Signs Vital signs: Vital Signs Temp 97.7 F 04/16/24 07:00 Pulse 81 04/16/24 07:00 Resp 16 04/16/24 07:00 BP 116/79 04/16/24 07:00 Pulse Ox 100 04/16/24 07:00 FiO2 Intake & Output 04/15/24 04/16/24 04/16/24 18:59 06:59 18:59 Intake Total 118 Balance 118 Intake: Oral 118 Other: Voiding Method Toilet # Voids 3 3 - Labs CBC & Chem 7: 04/16/24 02:46 04/16/24 02:46 Labs: Abnormal Lab Results - Last 24 Hours (Table) 04/16/24 04/16/24 Range/Units 02:46 02:46 RBC 3.32 L (4.10-5.20) X 10*6/uL Hct 36.7 L (37.2-46.3) % MCV 110.5 H (80.0-97.0) FL MCH 36.1 H (27.0-32.0) pg RDW 17.1 H (11.5-14.5) % NRBC/100 WBC Diff 0.02 H (0.00-0.01) X 10*3/uL BUN 6.1 L (9.0-27.0) mg/dL BUN/Creatinine Ratio 8.71 L (12.00-20.00) Ratio Total Bilirubin 1.5 H (0.3-1.2) mg/dL AST 211 H (13-35) U/L ALT 104 H (8-44) U/L
[2024-04-17 06:30] LABS: Anisocytosis Slight; Basophils # (A) 0.1 k/uL (0-0.2); Basophils % (A) 1 %; Eosinophils # (A) 0.1 k/uL (0-0.7); Eosinophils % (A) 1 %; HCT 39.8 % (34.0-46.0); HGB 13.4 gm/dL (11.4-16.0); Lymphocytes # (A) 2.1 k/uL (1.0-4.8); Lymphocytes % (A) 31 %; MCH 36.9 pg (25.0-35.0); MCHC 33.6 g/dL (31.0-37.0); Macrocytosis Marked; Mean Platelet Volume 8.3; Monocytes # (A) 0.4 k/uL (0-1.0); Monocytes % (A) 7 %; Neutrophils # (A) 3.8 k/uL (1.3-7.7); Neutrophils % (A) 58 %; Platelet Count 155 k/uL (150-450); RBC 3.62 m/uL (3.80-5.40); RDW 16.3 % (11.5-15.5); WBC 6.6 k/uL (3.8-10.6)
[2024-04-17 06:32] LABS: ALT 144 U/L (4-34); African American GFR (CKD) >90 (>60 ml/min/1.73 sqM); Albumin 4.3 g/dL (3.5-5.0); Albumin/Globulin Ratio 1.5; Anion Gap 8 mmol/L; Blood Urea Nitrogen 9 mg/dL (7-17); Calcium 9.2 mg/dL (8.4-10.2); Carbon Dioxide 24 mmol/L (22-30); Chloride 103 mmol/L (98-107); Globulin 2.8 g/dL; Glucose 88 mg/dL (74-99); Non-African American GFR(CKD) >90 (>60 ml/min/1.73 sqM); Sodium 135 mmol/L (137-145); Total Bilirubin 1.7 mg/dL (0.2-1.3); Total Protein 7.1 g/dL (6.3-8.2)
[2024-04-17 06:36] LABS: AST 239 U/L (14-36); Alkaline Phosphatase 46 U/L (38-126); Potassium 4.5 mmol/L (3.5-5.1)
--- NOTE | 2024-04-17 09:18 | P.PN ---
Subjective Progress Note Date: 04/17/24 CHIEF COMPLAINT: Abdominal pain with gallstones HISTORY OF PRESENT ILLNESS: The patient is a 38-year-old female being assessed due to elevated LFTs, alcohol abuse, abdominal pain with gallstones. She r eports feeling better today with less anxiety. She is tolerating diet however taking it slow. She does complain of right upper back including right upper abdominal pain consistent with gallstone disorder. ROS: No blood in stools. No fevers or chills. No productive sputum PHYSICAL EXAM: VITAL SIGNS: Reviewed CONSTITUTIONAL: Well developed and in no acute distress. EYES: Conjuctivae without sclera icterus. Extraocular movements grossly intact. HEAD, EARS, NOSE, THROAT: Moist buccal mucosa. Head is atraumatic, normocephalic. Hears conversational speech. No nasal drainage. RESPIRATORY: Non-labored respirations and equal bilateral excursions. CARDIOVASCULAR: Palpable 2+ radial pulses. ABDOMEN: No diffuse peritonitis. Tender upper abdomen MUSCULOSKELETAL: No gross deformity of the lower extremities noted. No clubbing. No cyanosis. SKIN: Good skin turgor. Well perfused. NEUROLOGIC: Cranial nerves II through XII grossly intact. No focal or lateralizing signs. PSYCH: Hysterical affect. Alert and oriented to person, place and time. CLINICAL LABS: Reviewed. LFTs still elevated including AST. Total bilirubin remains less than 2.0. ASSESSMENT: 1. Symptomatic gallstones with abdominal pain 2. Elevated LFTs with history of alcohol abuse disorder PLAN: 1. Recommend cholecystectomy if she is symptomatic due to gallstones. 2. Low-fat diet today. Clear liquid diet from morning with n.p.o. for lunch tomorrow. Objective - Vital Signs Vital signs: Vital Signs Temp 97.6 F 04/17/24 07:00 Pulse 92 04/17/24 07:00 Resp 16 04/17/24 07:00 BP 138/91 04/17/24 07:00 Pulse Ox 98 04/17/24 07:00 FiO2 Intake & Output 04/16/24 04/17/24 04/17/24 19:59 06:59 18:59 Intake Total 236 Balance 236 Intake: Oral 236 Other: Voiding Method # Voids # Bowel Movements - Labs CBC & Chem 7: 04/17/24 06:00 04/17/24 06:00 Labs: Abnormal Lab Results - Last 24 Hours (Table) 04/17/24 04/17/24 Range/Units 06:00 06:00 RBC 3.62 L (3.80-5.40) m/uL MCV 110.0 H (80.0-100.0) fL MCH 36.9 H (25.0-35.0) pg RDW 16.3 H (11.5-15.5) % Macrocytosis Marked A Sodium 135 L (137-145) mmol/L Creatinine 0.48 L (0.52-1.04) mg/dL Total Bilirubin 1.7 H (0.2-1.3) mg/dL AST 239 H (14-36) U/L ALT 144 H (4-34) U/L
[2024-04-17] MEDS: KETOROLAC 15 MG/ML 1 ML VIAL IVP SCH (12:51)
--- NOTE | 2024-04-17 13:40 | P.PN ---
Subjective Progress Note Date: 04/17/24 patient 38-year-old lady with past medical history significant for anxiety, hypertension brought in the ER because of nausea and vomiting. Patient stated that she was all right a few days back when she ran out of her Xanax prescription, patient was coping being out of the next by drinking heavily. Patient is complaining of poor appetite. Patient has nausea and vomiting. Denies abdominal pain. Patient is complaining of weight loss. Denies any altered bowel movements. There is no complaint of orthopnea or PND. Denied any chest pain. Because of the symptoms, patient came to the ER Initial lab work done in the ER showed CBC 6.1, hemoglobin 0.6, platelet count 164, sodium 136, potassium 3, BUN 9, creatinine 0.65, glucose 119, magnesium 1.1, bilirubin 3.1 Patient admitted to internal medicine service 04/15. Patient seen and examined. Abdominal pain has improved. Tolerating diet. No nausea or vomiting. 04/16. Patient seen and examined. Labs reviewed, bilirubin and LFTs have improved. MRCP done showed no evidence of ductal stricture, cholelithiasis or biliary duct obstruction. Still complain of nausea and abdominal pain. 04/17. Patient seen and examined. Patient being planned for for laparoscopic cholecystectomy tomorrow REVIEW OF SYSTEMS: CONSTITUTIONAL: No fever, no malaise,. CARDIOVASCULAR: No chest pain, no palpitations, no syncope. PULMONARY: No shortness of breath, no cough, GASTROINTESTINAL: As mentioned above NEUROLOGICAL: No headaches, no weakness, PHYSICAL EXAMINATION: GENERAL: The patient is alert and oriented x3, not in any acute distress. Well developed, well nourished. HEENT: Pupils are round and equally reacting to light. EOMI. No scleral icterus. No conjunctival pallor. Normocephalic, atraumatic. No pharyngeal erythema. No thyromegaly. CARDIOVASCULAR: S1 and S2 present. No murmurs, rubs, or gallops. PULMONARY: Chest is clear to auscultation, no wheezing or crackles. ABDOMEN: Soft, nontender, nondistended, normoactive bowel sounds. No palpable organomegaly. MUSCULOSKELETAL: No joint swelling or deformity. EXTREMITIES: No cyanosis, clubbing, or pedal edema. NEUROLOGICAL: Gross neurological examination did not reveal any focal deficits. SKIN: No rashes. Assessment and plan Nausea and vomiting Hyponatremia Hypokalemia Hypomagnesemia Hyper bilirubinemia Acute transaminitis Anxiety Hypertension Monitor vital signs Monitor CBC Monitor CMP Avoid hepatotoxic agents Trend LFTs, bilirubin this morning is 1.5, AST is 211, ALT is 104 ultrasound abdomen showed cholelithiasis MRCP done showed no evidence of ductal stricture, cholelithiasis or biliary duct obstruction General Surgery following, planning cholecystectomy tomorrow Labs and medication were reviewed.. Continue same treatment. Continue with symptomatic treatment. Resume home medication. Monitor labs and vitals. DVT and GI prophylaxis. Further recommendations as per clinical course of the patient Dictation was produced using [employer] dictation software. please excuse any grammatical, word or spelling errors. Objective - Vital Signs Vital signs: Vital Signs Temp 97.6 F 04/17/24 07:00 Pulse 92 04/17/24 07:00 Resp 16 04/17/24 07:00 BP 138/91 04/17/24 07:00 Pulse Ox 98 04/17/24 07:00 FiO2 Intake & Output 04/16/24 04/17/24 04/17/24 19:59 06:59 18:59 Intake Total Balance Intake: Oral Other: Voiding Method # Voids # Bowel Movements - Labs CBC & Chem 7: 04/17/24 06:00 04/17/24 06:00 Labs: Abnormal Lab Results - Last 24 Hours (Table) 04/16/24 04/17/24 04/17/24 Range/Units 02:46 06:00 06:00 RBC 3.62 L (3.80-5.40) m/uL MCV 110.0 H (80.0-100.0) fL MCH 36.9 H (25.0-35.0) pg RDW 16.3 H (11.5-15.5) % Macrocytosis Marked A Sodium 135 L (137-145) mmol/L BUN 6.1 L (9.0-27.0) mg/dL Creatinine 0.48 L (0.52-1.04) mg/dL BUN/Creatinine Ratio 8.71 L (12.00-20.00) Ratio Total Bilirubin 1.5 H 1.7 H (0.3-1.2) mg/dL AST 211 H 239 H (13-35) U/L ALT 104 H 144 H (8-44) U/L
[2024-04-18 09:08] LABS: ALT 129 U/L (8-44); AST 177 U/L (13-35); Albumin 3.9 g/dL (3.8-4.9); Alkaline Phosphatase 57 U/L (41-126); BUN/Creat Ratio 17.67 Ratio (12.00-20.00); Blood Urea Nitrogen 10.6 mg/dL (9.0-27.0); Calcium 9.2 mg/dL (8.7-10.3); Carbon Dioxide 26.3 mmol/L (21.6-31.8); Chloride 102 mmol/L (96-109); Globulin 2.6 g/dL (1.6-3.3); Glucose 106 mg/dL (70-110); Potassium 4.2 mmol/L (3.5-5.5); Sodium 138 mmol/L (135-145); Total Bilirubin 0.9 mg/dL (0.3-1.2); Total Protein 6.5 g/dL (6.2-8.2)
[2024-04-18] MEDS: SODIUM CHLORIDE 0.9% 1,000 ML IV SCH (11:56)
[2024-04-18] MEDS ORDERED: MIDAZOLAM 2 MG/2 ML VIAL ONE (18:38)
[2024-04-18] MEDS ORDERED: SUCCINYLCHOLINE CHLORIDE 200 MG/10 ML VIAL IV ONE (18:38)
[2024-04-18] MEDS ORDERED: fentaNYL (PF) 50 MCG/ML 2 ML AMP ONE (18:38)
[2024-04-18] MEDS ORDERED: NEOSTIGMINE 1 MG/ML 10 ML VIAL ONE (18:38)
[2024-04-18] MEDS ORDERED: PROPOFOL 10 MG/ML 20 ML VIAL IV ONE (18:38)
[2024-04-18] MEDS ORDERED: LIDOCAINE 1% INJ 10MG/ML (20 ML MDV) ONE (18:38)
[2024-04-18] MEDS ORDERED: GLYCOPYRROLATE 0.2 MG/ML 2 ML VIAL ONE (18:38)
[2024-04-18] MEDS ORDERED: HYDROmorphone (PF) 1 MG/ML ONE (18:38)
[2024-04-18] MEDS ORDERED: ROCURONIUM 10 MG/ML (5 ML VIAL) IV ONE (18:38)
[2024-04-18] MEDS: LACTATED RINGERS 1,000 ML IV ONE ×2 (18:44→19:55)
[2024-04-18] MEDS: SODIUM CHLORIDE 0.9% 50 ML with ceFAZolin 2,000 MG IV ONE (18:44)
--- NOTE | 2024-04-18 18:44 | P.PN ---
Subjective Progress Note Date: 04/18/24 patient 38-year-old lady with past medical history significant for anxiety, hypertension brought in the ER because of nausea and vomiting. Patient stated that she was all right a few days back when she ran out of her Xanax prescription, patient was coping being out of the next by drinking heavily. Patient is complaining of poor appetite. Patient has nausea and vomiting. Denies abdominal pain. Patient is complaining of weight loss. Denies any altered bowel movements. There is no complaint of orthopnea or PND. Denied any chest pain. Because of the symptoms, patient came to the ER Initial lab work done in the ER showed CBC 6.1, hemoglobin 0.6, platelet count 164, sodium 136, potassium 3, BUN 9, creatinine 0.65, glucose 119, magnesium 1.1, bilirubin 3.1 Patient admitted to internal medicine service 04/15. Patient seen and examined. Abdominal pain has improved. Tolerating diet. No nausea or vomiting. 04/16. Patient seen and examined. Labs reviewed, bilirubin and LFTs have improved. MRCP done showed no evidence of ductal stricture, cholelithiasis or biliary duct obstruction. Still complain of nausea and abdominal pain. 04/17. Patient seen and examined. Patient being planned for for laparoscopic cholecystectomy tomorrow 04/18/2024 Patient is evaluated today in follow up up ambulating and getting ready for shower. Feels bloated today and having mild abdominal discomfort, Bilirubin has normalized today. AST/ALT improving. Pending cholecystectomy today. REVIEW OF SYSTEMS: CONSTITUTIONAL: No fever, no malaise,. CARDIOVASCULAR: No chest pain, no palpitations, no syncope. PULMONARY: No shortness of breath, no cough, GASTROINTESTINAL: As mentioned above NEUROLOGICAL: No headaches, no weakness, PHYSICAL EXAMINATION: GENERAL: The patient is alert and oriented x3, not in any acute distress. Well developed, well nourished. HEENT: Pupils are round and equally reacting to light. EOMI. No scleral icterus. No conjunctival pallor. Normocephalic, atraumatic. No pharyngeal erythema. No thyromegaly. CARDIOVASCULAR: S1 and S2 present. No murmurs, rubs, or gallops. PULMONARY: Chest is clear to auscultation, no wheezing or crackles. ABDOMEN: Soft, nontender, nondistended, normoactive bowel sounds. No palpable organomegaly. MUSCULOSKELETAL: No joint swelling or deformity. EXTREMITIES: No cyanosis, clubbing, or pedal edema. NEUROLOGICAL: Gross neurological examination did not reveal any focal deficits. SKIN: No rashes. Assessment and plan Nausea and vomiting Hyponatremia Hypokalemia Hypomagnesemia Hyper bilirubinemia Acute transaminitis Anxiety Hypertension Monitor vital signs Monitor CBC Monitor CMP Avoid hepatotoxic agents Trend LFTs ultrasound abdomen showed cholelithiasis MRCP done showed no evidence of ductal stricture, cholelithiasis or biliary duct obstruction General Surgery following, planning cholecystectomy today Labs and medication were reviewed.. Continue same treatment. Continue with symptomatic treatment. Resume home medication. Monitor labs and vitals. DVT and GI prophylaxis. Further recommendations as per clinical course of the patient Dictation was produced using [employer] dictation software. please excuse any gramm atical, word or spelling errors. The impression and plan of care has been dictated by Kandis Simons Nurse Practitioner as directed. Dr. Jairo MD I have performed a history and physical examination and medical decision making of this patient, discussed the same with the dictator, and agree with the dictators assessment and plan as written, documented as a scribe. Based on total visit time, I have performed more than 50% of this visit. Objective - Vital Signs Vital signs: Vital Signs Temp 98.3 F 04/18/24 14:58 Pulse 85 04/18/24 14:58 Resp 18 04/18/24 14:58 BP 125/83 04/18/24 14:58 Pulse Ox 100 04/18/24 14:58 FiO2 Intake & Output 04/17/24 04/18/24 04/18/24 18:59 06:59 18:59 Intake Total 354 520 Balance 354 520 Intake: Oral 354 520 Other: # Voids 2 2 2 - Labs CBC & Chem 7: 04/17/24 06:00 04/18/24 04:04 Labs: Abnormal Lab Results - Last 24 Hours (Table) 04/18/24 Range/Units 04:04 AST 177 H (13-35) U/L ALT 129 H (8-44) U/L Albumin/Globulin Ratio 1.50 L (1.60-3.17) Ratio Assessment and Plan Time with Patient: Less than 30
[2024-04-18] MEDS: LIDOCAINE 1%-EPI 1:100,000 20 ML VIAL SQ ONE (19:03)
[2024-04-18] MEDS: HYDROmorphone 0.5 MG/0.5 ML SYRINGE IVP PRN (20:21)
[2024-04-18] MEDS: ONDANSETRON 4 MG/2 ML VIAL IVP PRN (20:37)
[2024-04-18] MEDS: INDOCYANINE GREEN 25 MG VIAL IV STA (21:04)
[2024-04-18] MEDS: SIMETHICONE 80 MG CHEWABLE PO SCH (22:24)
[2024-04-19] MEDS: KETOROLAC 15 MG/ML 1 ML VIAL IVP SCH (01:00)
[2024-04-19] MEDS: HYDROmorphone 2 MG/ML 1 ML SYRINGE IVP PRN (04:57)
[2024-04-19 08:57] LABS: ALT 216 U/L (8-44); AST 291 U/L (13-35); Albumin 3.9 g/dL (3.8-4.9); Alkaline Phosphatase 52 U/L (41-126); BUN/Creat Ratio 9.83 Ratio (12.00-20.00); Blood Urea Nitrogen 5.9 mg/dL (9.0-27.0); Calcium 9.3 mg/dL (8.7-10.3); Carbon Dioxide 27.6 mmol/L (21.6-31.8); Chloride 102 mmol/L (96-109); Globulin 2.3 g/dL (1.6-3.3); Glucose 90 mg/dL (70-110); Potassium 4.2 mmol/L (3.5-5.5); Sodium 139 mmol/L (135-145); Total Bilirubin 0.9 mg/dL (0.3-1.2); Total Protein 6.2 g/dL (6.2-8.2)
[2024-04-19] MEDS: diphenhydrAMINE 25 MG CAP PO PRN (10:18)
--- NOTE | 2024-04-19 10:53 | P.PN ---
Subjective Progress Note Date: 04/19/24 patient 38-year-old lady with past medical history significant for anxiety, hypertension brought in the ER because of nausea and vomiting. Patient stated that she was all right a few days back when she ran out of her Xanax prescription, patient was coping being out of the next by drinking heavily. Patient is complaining of poor appetite. Patient has nausea and vomiting. Denies abdominal pain. Patient is complaining of weight loss. Denies any altered bowel movements. There is no complaint of orthopnea or PND. Denied any chest pain. Because of the symptoms, patient came to the ER Initial lab work done in the ER showed CBC 6.1, hemoglobin 0.6, platelet count 164, sodium 136, potassium 3, BUN 9, creatinine 0.65, glucose 119, magnesium 1.1, bilirubin 3.1 Patient admitted to internal medicine service 04/15. Patient seen and examined. Abdominal pain has improved. Tolerating diet. No nausea or vomiting. 04/16. Patient seen and examined. Labs reviewed, bilirubin and LFTs have improved. MRCP done showed no evidence of ductal stricture, cholelithiasis or biliary duct obstruction. Still complain of nausea and abdominal pain. 04/17. Patient seen and examined. Patient being planned for for laparoscopic cholecystectomy tomorrow 04/18/2024 Patient is evaluated today in follow up up ambulating and getting ready for shower. Feels bloated today and having mild abdominal discomfort, Bilirubin has normalized today. AST/ALT improving. Pending cholecystectomy today. 06/19/2023 Patient is eval today in follow-up on the medical floor. She is up ambulating however she does report difficulty with getting up out of bed secondary to abdominal pain. She is postoperative day #1 robotic assisted cholecystectomy. Abdominal binder has been placed. Mood remains normal AST and ALT are elevated to 91 and 216. electrolytes and renal function are normal. Is afebrile and on room air. REVIEW OF SYSTEMS: CONSTITUTIONAL: No fever, no malaise,. CARDIOVASCULAR: No chest pain, no palpitations, no syncope. PULMONARY: No shortness of breath, no cough, GASTROINTESTINAL: As mentioned above NEUROLOGICAL: No headaches, no weakness, PHYSICAL EXAMINATION: GENERAL: The patient is alert and oriented x3, not in any acute distress. Well developed, well nourished. HEENT: Pupils are round and equally reacting to light. EOMI. No scleral icterus. No conjunctival pallor. Normocephalic, atraumatic. No pharyngeal erythema. No thyromegaly. CARDIOVASCULAR: S1 and S2 present. No murmurs, rubs, or gallops. PULMONARY: Chest is clear to auscultation, no wheezing or crackles. ABDOMEN: Soft, nontender, nondistended, normoactive bowel sounds. No palpable organomegaly. MUSCULOSKELETAL: No joint swelling or deformity. EXTREMITIES: No cyanosis, clubbing, or pedal edema. NEUROLOGICAL: Gross neurological examination did not reveal any focal deficits. SKIN: No rashes. Assessment and plan Nausea and vomiting secondary to symptomatic gallstones Electrolyte imbalance with hypokalemia, hyponatremia due to the vomiting and poor oral intake Hyper bilirubinemia Acute transaminitis Anxiety Hypertension GI prophylaxis Full Code Plan Monitor vital signs Avoid hepatotoxic agents Trend LFT MRCP done showed no evidence of ductal stricture, cholelithiasis or biliary duct obstruction is now postoperative robotic assisted cholecystectomy. She is having increased abdominal discomfort today and reports difficulty with ambulation and getting up out of bed. She continues on Dilaudid, IV Toradol, oral Ultram for pain management. She would like to stay in the hospital more day as she does have almost a 3-hour car ride home. We will leave this decision to general surgery. Labs and medication were reviewed.. Continue same treatment. Continue with symptomatic treatment. Resume home medication. Monitor labs and vitals. DVT and GI prophylaxis. Further recommendations as per clinical course of the patient Dictation was produced using [employer] dictation software. please excuse any gram matical, word or spelling errors. The impression and plan of care has been dictated by Kandis Simons, Nurse Practitioner as directed. Dr. Jairo MD I have performed a history and physical examination and medical decision making of this patient, discussed the same with the dictator, and agree with the dictators assessment and plan as written, documented as a scribe. Based on total visit time, I have performed more than 50% of this visit. Objective - Vital Signs Vital signs: Vital Signs Temp 98.1 F 04/19/24 08:00 Pulse 92 04/19/24 08:00 Resp 16 04/19/24 08:00 BP 126/87 04/19/24 08:00 Pulse Ox 98 04/19/24 08:00 FiO2 Intake & Output 04/18/24 04/19/24 04/19/24 18:59 06:59 18:59 Intake Total 1070 480 Balance 1070 480 Weight 74.843 kg Intake: IV 550 0 Oral 520 480 Other: Voiding Method Toilet # Voids 2 3 - Labs CBC & Chem 7: 04/17/24 06:00 04/19/24 04:31 Labs: Abnormal Lab Results - Last 24 Hours (Table) 04/19/24 Range/Units 04:31 BUN 5.9 L (9.0-27.0) mg/dL BUN/Creatinine Ratio 9.83 L (12.00-20.00) Ratio AST 291 H (13-35) U/L ALT 216 H (8-44) U/L Assessment and Plan Time with Patient: Less than 30
--- NOTE | 2024-04-19 12:53 | P.PN ---
Subjective Progress Note Date: 04/19/24 CHIEF COMPLAINT: Cholelithiasis HISTORY OF PRESENT ILLNESS: Postop day # 1 status post robotic assisted l aparoscopic cholecystectomy. Patient is complaining of left sided abdominal pain. She did report nausea earlier. She is having some itching on the left side of the abdomen near the incision site. She is having flatus. Reports a decrease in oral intake. Total bilirubin 0.9 AST did go up from 177-291 ALT 129 up to 216 alk phos 52 PHYSICAL EXAM: VITAL SIGNS: Reviewed GENERAL: Well-developed in no acute distress. HEENT: No sclera icterus. Extraocular movements grossly intact. Moist buccal mucosa. Head is atraumatic, normocephalic. Hears conversational speech. No nasal drainage. NECK: Supple without lymphadenopathy. CHEST: Non-labored respirations and equal bilateral excursions. CARDIOVASCULAR: Palpable 2+ radial pulses. ABDOMEN: Soft. Nondistended. Incision sites clean dry and intact. Minimal erythema noted at incision sites from itching. No drainage. Mild tenderness w ith palpation at incision sites MUSCULOSKELETAL: No clubbing or cyanosis. NEUROLOGIC: No focal or lateralizing signs. Cranial nerves II through XII grossly intact. PSYCH: Appropriate affect. Alert and oriented to person, place and time. SKIN: Well perfused. Good skin turgor. ASSESSMENT: 1. Cholelithiasis status post laparoscopic cholecystectomy 2. Elevated LFTs. Total bilirubin is normal. PLAN: -Check acute hepatitis panel -Abdominal binder and ice packs added for pain -Benadryl added for itching -Continue low-fat diet -Encourage patient to ambulate -Continue pain management Physician Telemarketing Fundraiser note has been reviewed by physician. Signing provider agrees with the documented findings, assessment, and plan of care. Objective - Vital Signs Vital signs: Vital Signs Temp 98.1 F 04/19/24 08:00 Pulse 92 04/19/24 08:00 Resp 16 04/19/24 08:00 BP 126/87 04/19/24 08:00 Pulse Ox 98 04/19/24 08:00 FiO2 Intake & Output 04/18/24 04/19/24 04/19/24 18:59 06:59 18:59 Intake Total 1070 480 Balance 1070 480 Weight 74.843 kg Intake: IV 550 0 Oral 520 480 Other: Voiding Method Toilet # Voids 2 3 - Labs CBC & Chem 7: 04/17/24 06:00 04/19/24 04:31 Labs: Abnormal Lab Results - Last 24 Hours (Table) 04/19/24 Range/Units 04:31 BUN 5.9 L (9.0-27.0) mg/dL BUN/Creatinine Ratio 9.83 L (12.00-20.00) Ratio AST 291 H (13-35) U/L ALT 216 H (8-44) U/L
[2024-04-19 15:22] LABS: Hepatitis A Antibody IgM Nonreactive (Nonreactive)
[2024-04-19 15:23] LABS: Hepatitis B Core IgM Nonreactive (Nonreactive); Hepatitis B Surface Antigen Nonreactive (Nonreactive); Hepatitis C IgG Antibody Nonreactive (Nonreactive)
--- NOTE | 2024-04-20 08:17 | P.OP ---
Date of Procedure: 04/18/24 Description of Procedure: SURGEON: GIOVANI GAYLE MD PREOPERATIVE DIAGNOSES: 1. Acute cholecystitis due to symptomatic gallstones 2. Right upper quadrant abdominal pain 3. Elevated liver enzymes 4. History of alcohol abuse 5. Obesity due to excess calories, BMI 30.2 6. Generalized anxiety disorder 7. Hypertensive heart disease POSTOPERATIVE DIAGNOSES: 1. Acute cholecystitis due to symptomatic gallstones 2. Right upper quadrant abdominal pain 3. Elevated liver enzymes 4. History of alcohol abuse 5. Obesity due to excess calories, BMI 30.2 6. Generalized anxiety disorder 7. Hypertensive heart disease 8. Hepatomegaly with fatty liver disease, moderate OPERATION: Robotic-assisted da Vasile Xi laparoscopic cholecystectomy, multiport with FIREFLY ESTIMATED BLOOD LOSS: 5 mL. SPECIMENS REMOVED: Gallbladder. COMPLICATIONS: None. OPERATIVE FINDINGS: 1. Moderate scarring over entire gallbladder with peritoneal adhesions, pericholecystic with features of chronic cholecystitis 2. Large gallstone over 4 cm impacted in gallbladder. 3. Severe fatty liver disease with hepatomegaly 4. Intrahepatic gallbladder INDICATIONS: The patient is a 38-year-old female who presents with elevated liver enzymes and acute cholecystitis due to symptomatic gallstones. Robotic assisted laparoscopic approach was described. Benefits and risks of the procedure including but not limited to bleeding, infection, injury to the biliary tree was described. Informed consent was obtained. DESCRIPTION OF PROCEDURE: Patient was brought to the operating room, placed in supine position. After general induction, the abdomen had been prepped and draped in standard sterile fashion. The robotic da Vasile XI system was primed. After a timeout protocol was performed, the patient had been prepped and draped in standard sterile fashion. The patient was injected with indocyanine green. A 5 mm 0 degrees laparoscopic trocar entry was performed along the left upper quadrant. The abdomen insufflated to 15 mmHg pressure which was tolerated well. Diagnostic laparoscopy demonstrated no injury to bowel viscera or mesentery. The liver surface was enlarged with moderate fatty liver deposits. Next, two 8 mm robotic ports were placed along the right upper abdomen. The camera 8-mm port was maintained along the epigastrium. Another 8 mm port was placed along the left upper abdominal wall after exchanging the 5 mm port. Please note that the ports were placed at least 10 to 15 cm away from the target anatomy of the gallbladder. The robot was docked along the left lateral abdomen. The patient was repositioned in reverse Trendelenburg position. Using a grasper for arm 3, a grasper for arm 4, including hook cautery for arm 1, the robotic system was docked and primed as described. Instruments were interchanged by the assistant to the director including hook cautery, Bovie cautery and clip appliers. I had sat at the console. The gallbladder was scarred with peritoneal adhesions. Lysis of adhesions was performed to free the gallbladder from the surrounding tissues using hook cautery. The gallbladder was intrahepatic requiring dome down to take from the fundus towards the infundibulum. Firm 4 cm stone was found impacted within the gallbladder. Next attention was brought to the infundibulum and cystic structures. The infundibulum and cystic duct were dissected free from surrounding tissues. The cystic duct was isolated. FIREFLY was used to identify the cystic artery and cystic structures. A critical view of safety was obtained. Large PLASTIC clips were used throughout the entire case. Using a clip sleeve wheel maker, 3 clips were placed at the junction of the infundibulum and cystic duct. The cystic duct was divided between clips. Next, the cystic artery was similarly clipped and cauterized. Electro-Bovie cautery was used to remove the gallbladder from the hepatic fossa. Hemostasis was checked and found to be adequate. The robot was undocked. I re-scrubbed into the case. Using a 10 mm Endo Catch bag via the left upper quadrant incision, the specimen was removed from the abdominal cavity after widening the incision to 3 cm. Forrest Santiago and 0 Vicryl was used to close the fascial defect. All pneumoperitoneum instruments were evacuated from the abdominal cavity. The incisions were reapproximated using 4-0 Monocryl in an interrupted subcuticular fashion. Fascial defects were less than 8 mm in size. Please note along the trocar sites, local anesthetic was placed as a field block prior to insertion of all instruments. Liquid glue was applied to the skin. At the end of the procedure needle, sponge, and instrument count had been verified correct by the surgical nurse practitioner. The patient was transferred to postanesthesia care unit in stable condition. Intraoperative films were shared with the patient's family.
[2024-04-20 08:47] LABS: ALT 214 U/L (8-44); AST 250 U/L (13-35); Albumin 3.7 g/dL (3.8-4.9); Albumin/Globulin Ratio 1.54 Ratio (1.60-3.17); Alkaline Phosphatase 49 U/L (41-126); Blood Urea Nitrogen 6.3 mg/dL (9.0-27.0); Calcium 9.4 mg/dL (8.7-10.3); Carbon Dioxide 27.3 mmol/L (21.6-31.8); Chloride 101 mmol/L (96-109); Globulin 2.4 g/dL (1.6-3.3); Glucose 108 mg/dL (70-110); Potassium 4.3 mmol/L (3.5-5.5); Sodium 139 mmol/L (135-145); Total Bilirubin 0.8 mg/dL (0.3-1.2); Total Protein 6.1 g/dL (6.2-8.2)
[2024-04-20] MEDS: DOCUSATE 100 MG CAP PO SCH (12:31)
--- NOTE | 2024-04-20 12:56 | P.PN ---
Subjective Progress Note Date: 04/20/24 CHIEF COMPLAINT: Cholelithiasis HISTORY OF PRESENT ILLNESS: Postop day # 2 status post robotic assisted l aparoscopic cholecystectomy. Patient continues to complain of pain. Does report the pain is slightly better than yesterday. She is having flatus. Denies any nausea or vomiting. Patient has not had a bowel movement for several days. Afebrile. Total bilirubin remains normal LFTs are trending downwards. Acute hepatitis panel is negative. Patient reports her abdominal itching is getting better. PHYSICAL EXAM: VITAL SIGNS: Reviewed GENERAL: Well-developed in no acute distress. HEENT: No sclera icterus. Extraocular movements grossly intact. Moist buccal mucosa. Head is atraumatic, normocephalic. Hears conversational speech. No nasal drainage. NECK: Supple without lymphadenopathy. CHEST: Non-labored respirations and equal bilateral excursions. CARDIOVASCULAR: Palpable 2+ radial pulses. ABDOMEN: Soft. Nondistended. Incision sites clean dry and intact. No erythema. MUSCULOSKELETAL: No clubbing or cyanosis. NEUROLOGIC: No focal or lateralizing signs. Cranial nerves II through XII grossly intact. PSYCH: Appropriate affect. Alert and oriented to person, place and time. SKIN: Well perfused. Good skin turgor. ASSESSMENT: 1. Cholelithiasis status post laparoscopic cholecystectomy 2. Elevated LFTs trending downwards. Total bilirubin is normal. PLAN: -Patient can be discharged from surgical standpoint -Continue low-fat diet -Encourage patient to ambulate -Continue pain management -Encourage patient to ambulate -Colace added for constipation Physician Medicaid Analyst note has been reviewed by physician. Signing provider agrees with the documented findings, assessment, and plan of care. Objective - Vital Signs Vital signs: Vital Signs Temp 98.1 F 04/20/24 08:00 Pulse 62 04/20/24 08:00 Resp 16 04/20/24 08:00 BP 134/67 04/20/24 08:00 Pulse Ox 99 04/20/24 08:00 FiO2 Intake & Output 04/19/24 04/20/24 04/20/24 18:59 06:59 18:59 Other: Voiding Method Toilet # Voids 2 2 - Labs CBC & Chem 7: 04/17/24 06:00 04/20/24 04:19 Labs: Abnormal Lab Results - Last 24 Hours (Table) 04/20/24 Range/Units 04:19 BUN 6.3 L (9.0-27.0) mg/dL BUN/Creatinine Ratio 10.50 L (12.00-20.00) Ratio AST 250 H (13-35) U/L ALT 214 H (8-44) U/L Total Protein 6.1 L (6.2-8.2) g/dL Albumin 3.7 L (3.8-4.9) g/dL Albumin/Globulin Ratio 1.54 L (1.60-3.17) Ratio
[2024-04-20 14:33] VITALS: BP 125/86; PULSE 85; RESP 14; TEMP 98.8
[2024-04-20 16:04] VITALS: BMI 30.2
--- NOTE | 2024-04-26 09:06 | P.DS ---
Providers Date of admission: 04/13/24 21:51 Attending physician: Keo Kemp Consults: 04/14/24 09:51 Consult Physician Routine Consulting Provider: Freddie Parson Consult Reason/Comments: Anxiety Do you want consulting provider notified?: Yes 04/15/24 11:59 Consult Physician Routine Consulting Provider: Rosa Morales Consult Reason/Comments: Hyperbilirubinemia, ultrasound abdomen showing cholelithiasis Do you want consulting provider notified?: Yes Primary care physician: [facility] Course: Final Diagnosis Nausea and vomiting secondary to symptomatic gallstones Cholelithiasis status post laparoscopic cholecystectomy Electrolyte imbalance with hypokalemia, hyponatremia due to the vomiting and poor oral intake Hyper bilirubinemia Acute transaminitis Anxiety Hypertension Discharge Disposition Patient is stable for discharge home. Continue supportive care. Diet as tolerated. Follow up with Dr Morales on 04/26/24. Hospital Course patient 38-year-old lady with past medical history significant for anxiety, hypertension brought in the ER because of nausea and vomiting. Patient stated that she was all right a few days back when she ran out of her Xanax prescription, patient was coping being out of the next by drinking heavily. Patient is complaining of poor appetite. Patient has nausea and vomiting. Denies abdominal pain. Patient is complaining of weight loss. Denies any altered bowel movements. There is no complaint of orthopnea or PND. Denied any chest pain. Because of the symptoms, patient came to the ER. Initial lab work done in the ER showed CBC 6.1, hemoglobin 0.6, platelet count 164, sodium 136, potassium 3, BUN 9, creatinine 0.65, glucose 119, magnesium 1.1, bilirubin 3.1 Patient admitted to internal medicine service. Electrolytes were supplemented and normalized. Patients LFTs remained elevated with RLQ abdominal pain worse after eating. MRCP done showed no evidence of ductal stricture, cholelithiasis or biliary duct obstruction. Still complain of nausea and abdominal pain. General surgery was consulted patient went for robotic assisted laproscopic cholecystectomy. She was monitored and discharged home postsurgical day #2. She has been up ambulating. Has mild abdominal discomfort. Please see medication reconciliation for a list of current medications. Thank you for allowing us to participate in the care of this patient. The impression and plan of care has been dictated by Kandis Simons, Nurse Practitioner as directed. Dr. Jairo MD I have performed a history and physical examination and medical decision making of this patient, discussed the same with the dictator, and agree with the dictators assessment and plan as written, documented as a scribe. Based on total visit time, I have performed more than 50% of this visit. Patient Condition at Discharge: Fair Plan - Discharge Summary New Discharge Prescriptions: New Ibuprofen [Motrin] 600 mg PO Q8HR PRN #30 tab PRN Reason: Pain Docusate [Colace] 100 mg PO BID #30 capsule Continue ALPRAZolam [Xanax] 1 mg PO BID PRN PRN Reason: Anxiety traMADol HCl [Ultram] 50 mg PO TID PRN PRN Reason: Pain Discharge Medication List ALPRAZolam [Xanax] 1 mg PO BID PRN 04/13/24 [History] traMADol HCl [Ultram] 50 mg PO TID PRN 04/13/24 [History] Docusate [Colace] 100 mg PO BID #30 capsule 04/20/24 [Rx] Ibuprofen [Motrin] 600 mg PO Q8HR PRN #30 tab 04/20/24 [Rx] Follow up Appointment(s)/Referral(s): Rosa Morales MD [STAFF PHYSICIAN] - 04/26/24 None,Stated [REFERRING] - 1-2 days Susan Hurley MD [Primary Care Provider] - 1-2 Days Ambulatory/Diagnostic Orders: Basic Metabolic Panel [LAB.AMB] Time Frame: 3 Days, Location: None Selected Magnesium [LAB.AMB] Location: None Selected Patient Instructions/Handouts: *Surgery [facility] - Laparoscopic Cholecystectomy Discharge Instructions Discharge/Stand Alone Forms: AA Meetings [address] [facility] - [facility], AA Meetings [place], Who Do I Call?, Community Resources, Outpatient Counseling, Inp Substance Abuse Facilities, Area PCPs Discharge Disposition: HOME SELF-CARE
== END 2024-04-20 18:11 | disposition home or self-care (01) | DRG 418 ==
LOC: EC 19:37 → 6NMEDSUR 21:50 → OBSVTOIN 21:51 → 6NMEDSUR 22:28
PROVIDERS: ADMIT Hospitalist; ATTEND Hospitalist
PROC: 0FT44ZZ Resection of Gallbladder, Percutaneous Endoscopic Approach (ICD-10-PCS; principal; 2024-04-18 07:30)
PROC: BF502Z0 Other Imaging of Bile Ducts using Fluorescing Agent, Intraoperative (ICD-10-PCS; principal; 2024-04-18 07:30)
PROC: 8E0W4CZ Robotic Assisted Procedure of Trunk Region, Percutaneous Endoscopic Approach (ICD-10-PCS; principal; 2024-04-18 07:30)
DX: K80.12 Calculus of gallbladder with acute and chronic cholecystitis without obstruction (principal); E87.1 Hypo-osmolality and hyponatremia; I16.9 Hypertensive crisis, unspecified; Q44.1 Other congenital malformations of gallbladder; R04.2 Hemoptysis; R74.01 Elevation of levels of liver transaminase levels; R63.4 Abnormal weight loss; K76.0 Fatty (change of) liver, not elsewhere classified; K66.0 Peritoneal adhesions (postprocedural) (postinfection); F17.290 Nicotine dependence, other tobacco product, uncomplicated; I11.9 Hypertensive heart disease without heart failure; F41.0 Panic disorder [episodic paroxysmal anxiety]; F41.1 Generalized anxiety disorder; E87.6 Hypokalemia; E66.09 Other obesity due to excess calories; E83.42 Hypomagnesemia; F10.11 Alcohol abuse, in remission; Z56.0 Unemployment, unspecified; Z68.30 Body mass index [BMI] 30.0-30.9, adult; Z85.41 Personal history of malignant neoplasm of cervix uteri
CPT/HCPCS: 36415; 74181; 76705; 80048; 80053; 80074; 80320; 81025; 82248; 83735; 84443; 84450; 84460; 85025; 85027; 88304; 96361; 96365; 96375; 99285

== ENCOUNTER 2024-06-19 12:17 | Emergency (ER) | payer BC ==
[2024-06-19 12:38] VITALS: PULSE 99; RESP 18; TEMP 98.6
--- NOTE | 2024-06-19 12:44 | ED ---
Abdominal Pain HPI - General Source: patient, RN notes reviewed, old records reviewed Mode of arrival: ambulatory Limitations: no limitations <Len Ryan - Last Filed: 06/19/24 12:43> <Lula Ndiaye - Last Filed: 06/30/24 23:08> - General Chief Complaint: Abdominal Pain Stated Complaint: vomiting L side abd pain Time Seen by Provider: 06/19/24 12:26 - History of Present Illness Initial Comments: Quick note 38-year-old female presents emergency department complaining increased abdominal pain, nausea decreased appetite states that she had a cholecystectomy at the beginning of April. Patient states this was performed by Dr. Morales she states that she was doing well but recently developed left upper quadrant abdominal pain but also some mild diffuse discomfort. She does admit that she stopped drinking alcohol recently (Len Ryan) 38-year-old female presents emergency department complaining of abdominal pain. States that over the past couple of days she has developed generalized abdominal pain with some discomfort in the right upper quadrant. Patient has nausea without vomiting. She admits that she has had surgery in April for cholecystectomy. Patient was concerned for some type of postop issue. Patient does admit to alcohol use but states that she recently quit. She denies fevers. No changes in her bowel or bladder habits to include dysuria, hematuria or difficulty voiding. No hematemesis. No history of ulcers. Patient has been taking Motrin for her pain. No other alleviating, precipitating roughing factors (Lula Ndiaye) - Related Data Home Medications Medication Instructions Recorded Confirmed ALPRAZolam [Xanax] 1 mg PO BID PRN 04/13/24 04/14/24 traMADol HCl [Ultram] 50 mg PO TID PRN 04/13/24 04/14/24 Previous Rx's Medication Instructions Recorded Docusate [Colace] 100 mg PO BID #30 capsule 04/20/24 Ibuprofen [Motrin] 600 mg PO Q8HR PRN #30 tab 04/20/24 ALPRAZolam [Xanax] 1 mg PO BID PRN 3 Days #6 tab 06/19/24 traMADol HCl [Ultram] 50 mg PO Q6H PRN #12 tab 06/19/24 Allergies Allergy/AdvReac Type Severity Reaction Status Date / Time No Known Allergies Allergy Verified 06/19/24 12:38 Review of Systems ROS Other: All systems not noted in ROS Statement are negative. <Len Ryan - Last Filed: 06/19/24 12:43> ROS Other: All systems not noted in ROS Statement are negative. <SenthilLula Hall - Last Filed: 06/30/24 23:08> ROS Statement: Those systems with pertinent positive or pertinent negative responses have been documented in the HPI. Past Medical History Past Medical History: Cancer, Hypertension Additional Past Medical History / Comment(s): Cervical cancer 2009 History of Any Multi-Drug Resistant Organisms: None Reported Past Surgical History: Adenoidectomy, Tonsillectomy Past Psychological History: Anxiety Smoking Status: Never smoker Past Alcohol Use History: Daily Past Drug Use History: None Reported <Len Ryan - Last Filed: 06/19/24 12:43> General Exam Limitations: no limitations <Len Ryan - Last Filed: 06/19/24 12:43> General appearance: alert, in no apparent distress Head exam: Present: atraumatic, normocephalic, normal inspection Eye exam: Present: normal appearance, PERRL, EOMI. Absent: scleral icterus, conjunctival injection, periorbital swelling ENT exam: Present: normal exam, mucous membranes moist Neck exam: Present: normal inspection. Absent: tenderness, meningismus, lymphadenopathy Respiratory exam: Present: normal lung sounds bilaterally. Absent: respiratory distress, wheezes, rales, rhonchi, stridor Cardiovascular Exam: Present: regular rate, normal rhythm, normal heart sounds. Absent: systolic murmur, diastolic murmur, rubs, gallop, clicks GI/Abdominal exam: Present: soft, tenderness (Generalized. No peritoneal signs), normal bowel sounds. Absent: distended, guarding, rebound, rigid Extremities exam: Present: normal inspection, full ROM, normal capillary refill. Absent: tenderness, pedal edema, joint swelling, calf tenderness Back exam: Present: normal inspection Neurological exam: Present: alert, oriented X3, CN II-XII intact Psychiatric exam: Present: normal affect, normal mood Skin exam: Present: warm, dry, intact, normal color. Absent: rash <Lula Ndiaye - Last Filed: 06/30/24 23:08> - General Exam Comments Initial Comments: Visual Physical Exam Vital signs reviewed General: Well-appearing, nontoxic, no acute distress. Head: Normocephalic, atraumatic Eyes: PERRLA, EOMI ENT: Airway patent Chest: Nonlabored breathing Skin: No visual rash, normal skin tone Neuro: Alert and oriented 3 Musculoskeletal: No gross abnormalities (Len Ryan) Course Vital Signs 06/19/24 06/19/24 12:36 18:07 Temperature 98.6 F Pulse Rate 99 99 Respiratory 18 18 Rate Blood Pressure 123/72 129/70 O2 Sat by Pulse 97 99 Oximetry Medical Decision Making <Len Ryan - Last Filed: 06/19/24 12:43> - Lab Data Result diagrams: 06/19/24 13:48 06/19/24 13:48 <Lula Ndiaye - Last Filed: 06/30/24 23:08> - Medical Decision Making I completed the quick note portion of this chart signed Len Ryan PA-C (Lne Ryan) Was pt. sent in by a medical professional or institution (Dr. PA, WELDING MACHINE OPERATOR [employer]AS, urgent care, hospital, or care home...) When possible be specific @ -No Did you speak to anyone other than the patient for history (EMS, parent, family, police, friend...)? What history was obtained from this source @ -No Did you review nursing and triage notes (agree or disagree)? Why? @ -I reviewed and agree with nursing and triage notes Were old charts reviewed (outside hosp., previous admission, EMS record, old EKG, old radiological studies, urgent care reports/EKG's, care home records)? Report findings @ -I reviewed the procedure note from April when the patient had cholecystectomy Differential Diagnosis (chest pain, altered mental status, abdominal pain women, abdominal pain men, vaginal bleeding, weakness, fever, dyspnea, syncope, headache, dizziness, GI bleed, back pain, seizure, CVA, palpatations, mental health, musculoskeletal)? @ -Differential Abdominal Pain Women: Appendicitis, Cholecystitis, diverticulosis, ischemic bowel, pancreatitis, hepatitis, UTI, gastroenteritis, AAA, incarcerated hernia, bowel obstruction, constipation, inflammatory bowel, hepatitis, peptic ulcer disease, splenic infarction, perforated viscus, vulvitis, ovarian torsion, PID, kidney stone, placenta abruption, this is not meant to be an all-inclusive list EKG interpreted by me (3pts min.). @ -Not done X-rays interpreted by me (1pt min.). @ -None done CT interpreted by me (1pt min.). @ -Yes which demonstrates no acute intra-abdominal process U/S interpreted by me (1pt. min.). @ -None done What testing was considered but not performed or refused? (CT, X-rays, U/S, labs)? Why? @ -None What meds were considered but not given or refused? Why? @ -None Did you discuss the management of the patient with other professionals (professionals i.e. , PA, WELDING MACHINE OPERATOR [employer], lab, RT, psych nurse, social services manager, rouge sifter and miller, teacher, chief medical officer, rn case manager)? Give summary @ -No Was smoking cessation discussed for >3mins.? @ -No Was critical care preformed (if so, how long)? @ -No Were there social determinants of health that impacted care today? How? (H omelessness, low income, unemployed, alcoholism, drug addiction, transportation, low edu. Level, literacy, decrease access to med. care, assisted, rehab)? @ -No Was there de-escalation of care discussed even if they declined (Discuss DNR or withdrawal of care, Hospice)? DNR status @ -No What co-morbidities impacted this encounter? (DM, HTN, Smoking, COPD, CAD, Cancer, CVA, ARF, Chemo, Hep., AIDS, mental health diagnosis, sleep apnea, morbid obesity)? @ -None Was patient admitted / discharged? Hospital course, mention meds given and route, prescriptions, significant lab abnormalities, going to OR and other pertinent info. @ -Upon arrival patient seen and evaluated in [place] . Thorough history and physical exam was performed. IV access was established. Laboratory studies are conducted. Patient was given pain and nausea medications. Laboratory studies are reviewed. Patient has mildly elevated liver enzymes. I did discuss this with the patient. Recommended strict no alcohol intake. Patient previously has seen Dr. Yates. I did recommend that she follow-up in her office for EGD to further evaluate the patient's symptoms. Return to the emergency department immediately for any new or worsening symptoms. Patient agreeable with plan. She is asking for stronger pain medications at home then Motrin and Tylenol. She has previously taken tramadol. Request if I can refill her tramadol and Xanax. Instructed on their indications for use. Patient agreeable to plan was discharged in stable condition Undiagnosed new problem with uncertain prognosis? @ -Yes Drug Therapy requiring intensive monitoring for toxicity (Heparin, Nitro, Insulin, Cardizem)? @ -No Were any procedures done? @ -No Diagnosis/symptom? @ -Acute generalized abdominal pain Acute, or Chronic, or Acute on Chronic? @ -Acute Uncomplicated (without systemic symptoms) or Complicated (systemic symptoms)? @ -Complicated Side effects of treatment? @ -No Exacerbation, Progression, or Severe Exacerbation? @ -No Poses a threat to life or bodily function? How? (Chest pain, USA, NM, pneumonia, PE, COPD, DKA, ARF, appy, cholecystitis, CVA, Diverticulitis, Homicidal, Suicidal, threat to staff... and all critical care pts) @ -No (Lula Ndiaye) - Lab Data Lab Results 06/19/24 06/19/24 06/19/24 Range/Units 13:48 13:48 13:48 WBC 6.5 (3.8-10.6) k/uL RBC 4.45 (3.80-5.40) m/uL Hgb 15.6 (11.4-16.0) gm/dL Hct 44.9 (34.0-46.0) % MCV 100.9 H D (80.0-100.0) fL MCH 35.1 H (25.0-35.0) pg MCHC 34.8 (31.0-37.0) g/dL RDW 14.3 (11.5-15.5) % Plt Count 182 (150-450) k/uL MPV 7.8 Neutrophils % 67 % Lymphocytes % 26 % Monocytes % 5 % Eosinophils % 0 % Basophils % 1 % Neutrophils # 4.4 (1.3-7.7) k/uL Lymphocytes # 1.7 (1.0-4.8) k/uL Monocytes # 0.3 (0-1.0) k/uL Eosinophils # 0.0 (0-0.7) k/uL Basophils # 0.0 (0-0.2) k/uL Macrocytosis Slight Sodium 136 L (137-145) mmol/L Potassium 3.9 (3.5-5.1) mmol/L Chloride 98 (98-107) mmol/L Carbon Dioxide 25 (22-30) mmol/L Anion Gap 13 mmol/L BUN 14 (7-17) mg/dL Creatinine 0.76 (0.52-1.04) mg/dL Est GFR (CKD-EPI)AfAm >90 (>60 ml/min/1.73 sqM) Est GFR (CKD-EPI)NonAf >90 (>60 ml/min/1.73 sqM) Glucose 101 H (74-99) mg/dL Plasma Lactic Acid Fredrick 0.8 (0.7-2.0) mmol/L Calcium 9.6 (8.4-10.2) mg/dL Total Bilirubin 4.1 H (0.2-1.3) mg/dL Conjugated Bilirubin 0.0 (0.0-0.3) mg/dL Unconjugated Bilirubin 3.8 H (0.0-1.1) mg/dL Delta Bilirubin 0.3 H (0.0-0.2) mg/dL AST 95 H (14-36) U/L ALT 38 H (4-34) U/L Alkaline Phosphatase 49 (38-126) U/L Total Protein 8.3 H (6.3-8.2) g/dL Albumin 5.0 (3.5-5.0) g/dL Lipase 152 (23-300) U/L Urine Color Urine Appearance (Clear) Urine pH (5.0-8.0) Ur Specific [place] (1.001-1.035) Urine Protein (Negative) Urine Glucose (UA) (Negative) Urine Ketones (Negative) Urine Blood (Negative) Urine Nitrite (Negative) Urine Bilirubin (Negative) Urine Urobilinogen (<2.0) mg/dL Ur Leukocyte Esterase (Negative) Urine RBC (0-5) /hpf Urine WBC (0-5) /hpf Ur Squamous Epith Cells (0-4) /hpf Urine Mucus (None) /hpf Urine HCG, Qual (Not Detectd) Acetaminophen <10.0 ug/mL Serum Alcohol <10 mg/dL 06/19/24 06/19/24 Range/Units 13:49 13:50 WBC (3.8-10.6) k/uL RBC (3.80-5.40) m/uL Hgb (11.4-16.0) gm/dL Hct (34.0-46.0) % MCV (80.0-100.0) fL MCH (25.0-35.0) pg MCHC (31.0-37.0) g/dL RDW (11.5-15.5) % Plt Count (150-450) k/uL MPV Neutrophils % % Lymphocytes % % Monocytes % % Eosinophils % % Basophils % % Neutrophils # (1.3-7.7) k/uL Lymphocytes # (1.0-4.8) k/uL Monocytes # (0-1.0) k/uL Eosinophils # (0-0.7) k/uL Basophils # (0-0.2) k/uL Macrocytosis Sodium (137-145) mmol/L Potassium (3.5-5.1) mmol/L Chloride (98-107) mmol/L Carbon Dioxide (22-30) mmol/L Anion Gap mmol/L BUN (7-17) mg/dL Creatinine (0.52-1.04) mg/dL Est GFR (CKD-EPI)AfAm (>60 ml/min/1.73 sqM) Est GFR (CKD-EPI)NonAf (>60 ml/min/1.73 sqM) Glucose (74-99) mg/dL Plasma Lactic Acid Fredrick (0.7-2.0) mmol/L Calcium (8.4-10.2) mg/dL Total Bilirubin (0.2-1.3) mg/dL Conjugated Bilirubin (0.0-0.3) mg/dL Unconjugated Bilirubin (0.0-1.1) mg/dL Delta Bilirubin (0.0-0.2) mg/dL AST (14-36) U/L ALT (4-34) U/L Alkaline Phosphatase (38-126) U/L Total Protein (6.3-8.2) g/dL Albumin (3.5-5.0) g/dL Lipase (23-300) U/L Urine Color Yellow Urine Appearance Clear (Clear) Urine pH 6.0 (5.0-8.0) Ur Specific [place] 1.030 (1.001-1.035) Urine Protein 1+ H (Negative) Urine Glucose (UA) Negative (Negative) Urine Ketones 3+ H (Negative) Urine Blood Small H (Negative) Urine Nitrite Negative (Negative) Urine Bilirubin 1+ H (Negative) Urine Urobilinogen 2.0 (<2.0) mg/dL Ur Leukocyte Esterase Negative (Negative) Urine RBC 1 (0-5) /hpf Urine WBC 1 (0-5) /hpf Ur Squamous Epith Cells <1 (0-4) /hpf Urine Mucus Few H (None) /hpf Urine HCG, Qual Not Detected (Not Detectd) Acetaminophen ug/mL Serum Alcohol mg/dL Disposition <Len Ryan - Last Filed: 06/19/24 12:43> Is patient prescribed a controlled substance at d/c from ED?: Yes When asked, does pt state using other controlled substances?: No If prescribed controlled substance>3 days was MAPS reviewed?: Prescribed <3 Days If opioid is for acute pain is fill amount 7 days or less?: Yes Time of Disposition: 17:46 <Lula Ndiaye - Last Filed: 06/30/24 23:08> Clinical Impression: RUQ pain, Unconjugated hyperbilirubinemia Disposition: HOME SELF-CARE Condition: Stable Instructions (If sedation given, give patient instructions): Abdominal Pain (ED) Additional Instructions: Please stop drinking any alcohol. Decrease the foods that you are eating which are high in fat. Follow-up with the GI doctor within 1-2 weeks. Follow-up with your PCP in 2 to 4 days. Return for any new or worsening symptoms Prescriptions: traMADol HCl [Ultram] 50 mg PO Q6H PRN #12 tab PRN Reason: Pain ALPRAZolam [Xanax] 1 mg PO BID PRN 3 Days #6 tab PRN Reason: Anxiety Referrals: Susan Hurley MD [Primary Care Provider] - 1-2 days Myrna Canales MD [STAFF PHYSICIAN] - 1-2 days
[2024-06-19 14:17] LABS: Basophils % (A) 1 %; Eosinophils % (A) 0 %; HCT 44.9 % (34.0-46.0); HGB 15.6 gm/dL (11.4-16.0); Lymphocytes # (A) 1.7 k/uL (1.0-4.8); Lymphocytes % (A) 26 %; MCH 35.1 pg (25.0-35.0); MCHC 34.8 g/dL (31.0-37.0); Macrocytosis Slight; Mean Platelet Volume 7.8; Monocytes # (A) 0.3 k/uL (0-1.0); Monocytes % (A) 5 %; Neutrophils # (A) 4.4 k/uL (1.3-7.7); Neutrophils % (A) 67 %; Platelet Count 182 k/uL (150-450); RBC 4.45 m/uL (3.80-5.40); RDW 14.3 % (11.5-15.5); WBC 6.5 k/uL (3.8-10.6)
[2024-06-19 14:20] LABS: Anion Gap 13 mmol/L; Blood Urea Nitrogen 14 mg/dL (7-17); Carbon Dioxide 25 mmol/L (22-30); Chloride 98 mmol/L (98-107); Glucose 101 mg/dL (74-99); Potassium 3.9 mmol/L (3.5-5.1); Sodium 136 mmol/L (137-145)
[2024-06-19 14:21] LABS: ALT 38 U/L (4-34); AST 95 U/L (14-36); Acetaminophen <10.0 ug/mL; African American GFR (CKD) >90 (>60 ml/min/1.73 sqM); Alcohol <10 mg/dL; Alkaline Phosphatase 49 U/L (38-126); Bilirubin, Delta 0.3 mg/dL (0.0-0.2); Bilirubin,Unconjugated 3.8 mg/dL (0.0-1.1); Calcium 9.6 mg/dL (8.4-10.2); Lipase 152 U/L (23-300); Non-African American GFR(CKD) >90 (>60 ml/min/1.73 sqM); Total Bilirubin 4.1 mg/dL (0.2-1.3); Total Protein 8.3 g/dL (6.3-8.2)
[2024-06-19 14:22] LABS: MCV 100.9 fL (80.0-100.0)
[2024-06-19 15:03] LABS: Appearance,Urine Clear (Clear); Bilirubin,Urine 1+ (Negative); Blood,Urine Small (Negative); Color,Urine Yellow; Glucose,Urine (UA) Negative (Negative); Ketones,Urine 3+ (Negative); Leukocyte Esterase,Urine Negative (Negative); Mucus,Urine Few /hpf; Nitrite,Urine Negative (Negative); Protein,Urine 1+ (Negative); RBC,Urine 1 /hpf (0-5); Squamous Epithelial Cell,Urine <1 /hpf (0-4); WBC,Urine 1 /hpf (0-5)
[2024-06-19] MEDS: ONDANSETRON 4 MG/2 ML VIAL IVP STA (16:05)
[2024-06-19] MEDS: SODIUM CHLORIDE 0.9% 1,000 ML IV ONE (16:05)
[2024-06-19] MEDS: MORPHINE SULFATE 4 MG/ML SYRINGE IVP STA (16:05)
--- NOTE | 2024-06-19 16:05 | CT ---
EXAMINATION TYPE: CT abdomen pelvis w con DATE OF EXAM: 06/19/2024 3:00 PM COMPARISON: None. CLINICAL INDICATION: Female, 38 years old with history of abd pain post op; left side pain/post op 6 weeks TECHNIQUE: Axial CT abdomen pelvis w con;Sagittal and coronal reformats were created on a separate w orkstation. Contrast used:100ml mL of Isovue 300 with IV Contrast, (none if empty) Oral contrast used: without Oral Contrast (none if empty) CT DLP: 740.8 mGycm, Automated exposure control for dose reduction was used. FINDINGS: LOWER CHEST: Unremarkable ABDOMEN LIVER: Diffusely hypoattenuating parenchyma. GALLBLADDER AND BILE DUCTS: The gallbladder is surgically absent. PANCREAS: Unremarkable. SPLEEN: Unremarkable. ADRENAL GLANDS: Unremarkable. KIDNEYS AND URETERS: No evidence of hydronephrosis or renal calculus. The ureters are unremarkable. PELVIS BLADDER: No evidence for wall thickening or mass given limitations of exam. REPRODUCTIVE: Unremarkable. ABDOMEN & PELVIS STOMACH AND BOWEL: Stomach and duodenum are unremarkable. Appendix unremarkable. No evidence of bowel obstruction. PERITONEUM/RETROPERITONEUM: No evidence of pneumoperitoneum or free fluid. VASCULATURE: No evidence of aortic aneurysm. MUSCULOSKELETAL: No acute osseous abnormalities LYMPH NODES: No gross evidence for lymphadenopathy. SOFT TISSUE/ABDOMINAL WALL: Unremarkable IMPRESSION: No acute abnormality in the abdomen/pelvis or CT findings to explain reported symptoms. [facility], , 06/19/2024 4:03 PM
[2024-06-19] MEDS: ALPRAZolam 1 MG TAB PO STA (17:45)
[2024-06-19 18:09] VITALS: BP 129/70
== END 2024-06-19 18:09 | disposition home or self-care (01) ==
LOC: EC 12:17
DX: E80.6 Other disorders of bilirubin metabolism (principal); R10.11 Right upper quadrant pain
CPT/HCPCS: 36415; 80053; 82248; 83605; 83690; 85025; 81001; 81025; 80143; 80320; 74177; 99284; 96374; 96375; 96361 ×2; J2270; J2405; Q9967